=== PATIENT | male | born 1960 | race Caucasian/White ===

== ENCOUNTER → 2017-10-19 13:54 | Outpatient (CLI) | payer OTHER, SELFPAY ==
--- NOTE | 2017-10-19 14:13 | RAD_ITS ---
STUDY: X-RAY - LUMBAR SPINE REASON FOR EXAM: Male, 57 years old. PATIENT STATES THURSDAY HIS BROTHER BEAR HUGGED HIM AND LIFTED HIM OFF THE GROUND. PAIN IN LOWER BACK RADIATING TO THE LEFT TECHNIQUE: 5 view(s) of the lumbar spine were obtained. COMPARISON: None FINDINGS: Normal lumbar lordosis. There is no substantial scoliosis. There is a normal alignment of the vertebrae. There is multilevel endplate spondylosis of the lumbar vertebrae. There is multi-level degenerative disc disease with multi-level disc space narrowing. There are atherosclerotic vascular calcifications. The soft tissue structures are unremarkable. RAD/L/S Spine Min 4 Views IMPRESSION: Degenerative changes of the spine, as detailed above. Electronically Signed: Mayank Silver MD at 21:15 EDT , Service support ,
== END ==
PROVIDERS: Family Provider Family Medicine; PCP Family Medicine; Visit Provider Nurse Practitioner Family
DX: S39.92XA Unspecified injury of lower back, initial encounter (principal)
CPT/HCPCS: 72110

== ENCOUNTER → 2017-11-14 09:22 | Outpatient (CLI) | payer OTHER, SELFPAY ==
--- NOTE | 2017-11-14 09:45 | US_ITS ---
STUDY: RENAL ULTRASOUND - COMPLETE REASON FOR EXAM: Male, 57 years old. Follow-up left renal cyst. TECHNIQUE: Ultrasound evaluation of the kidneys was performed with real-time and static obando-scale imaging. COMPARISON: 07/20/2015. FINDINGS: RIGHT KIDNEY: Normal location of the right kidney, which is normal in size. The right kidney measures 11.0 x 5.3 x 4.7 cm. There is a normal cortex of the right kidney. The renal cortex measures 1.5 cm. There is no right renal mass or cyst. There are no right renal calculi. There is no right hydronephrosis. DISTAL RIGHT URETER: There is non-visualization of the distal right ureter. There is no demonstrated right ureterovesical junction calculus. There is a visualized right ureteral jet. LEFT KIDNEY: Normal location of the left kidney, which is normal in size. The left kidney measures 11.2 x 4.7 x 5.3 cm. There is a normal cortex of the left kidney. The renal cortex measures 1.6 cm. Stable 1.5 cm mid renal cyst. There are no left renal calculi. There is no left hydronephrosis. DISTAL LEFT URETER: There is non-visualization of the distal left ureter. There is no demonstrated left ureterovesical junction calculus. There is a visualized left ureteral jet. BLADDER: The distended urinary bladder has a volume of 390 ml. The empty urinary bladder has a volume of 66 ml. There is a normal wall thickness of the distended urinary bladder. There is no demonstrated mass within the urinary bladder. There are no demonstrated bladder calculi. Moderate prostate enlargement measuring 3.6 x 5.9 x 3.6 cm. US/Kidney and Bladder IMPRESSION: No acute abnormalities. Stable simple cyst of the mid left kidney. Enlarged prostate gland and small post void residual of the bladder. Electronically Signed: Stewart Ross MD at 23:30 EDT , Service support ,
== END ==
PROVIDERS: Family Provider Family Medicine; PCP Family Medicine; Referring Provider Family Medicine; Visit Provider Family Medicine
DX: N28.1 Cyst of kidney, acquired (principal)
CPT/HCPCS: 76770

== ENCOUNTER → 2018-03-26 07:14 | Outpatient (CLI) | payer OTHER, SELFPAY ==
[2018-03-26 10:10] LABS: Absolute Lymphocyte Count 1.97 X10^3/ul (0.83-4.51); Absolute Neutrophil Count 3.1 X10^3/uL (2.0-7.7); Basophil# 0.06 X10^3/uL; Basophil% 0.9 % (0-1); Eosinophil# 0.44 X10^3/uL; Eosinophils% 6.7 % (0-5); Hematocrit 41.3 % (40-54); Hemoglobin 13.6 g/dl (13.0-16.5); Lymphocyte # 1.97 X10^3/ul (4.0); Mean Corp Hgb Conc 32.9 g/gl (32-36); Mean Corpuscular Hgb 32.1 pg (27.0-32.0); Mean Corpuscular Volume 97.4 fL (80-94); Mean Platelet Vol. 9.5 fl (6.2-12.0); Monocyte# 0.94 X10^3/uL; Monocyte% 14.3 % (0-10); Neutrophil # 3.14 X10^3/uL (2.7-7.7); Neutrophil % 47.8 % (47-70); Platelet Count 342 K/mm3 (150-450); RBC Distribution Width SD 48.7 fl (35.1-43.9); Red Blood Count 4.24 M/mm3 (4.6-6.2); White Blood Count 6.6 K/mm3 (4.4-11.0)
[2018-03-26 10:11] LABS: POSITIVE COUNT NO; POSITIVE DIFFERENTIAL NO; POSITIVE MORPHOLOGY NO
[2018-03-26 10:35] LABS: Microalbumin,Random Urine 13.8 mg/L (NO RANGE EST.); Microalbumin:Creatinine Ratio 23.8 mg/g CRE (<30 mg/g CRE)
[2018-03-26 11:05] LABS: Anion Gap 8 (5-15); BUN 12 mg/dL (7-18); BUN/Creat Ratio 15.6 RATIO (10-20); Calcium,Total 9.4 mg/dL (8.5-10.1); Chloride 104 mmol/L (98-107); Cholesterol 194 mg/dL (200); Creatinine, Serum 0.77 mg/dL (0.70-1.30); EST Glomerular Filtration Rate 110 mL/min (>60); Est Glom Filt Rate - Afr Amer 133 mL/min (>60); Glucose 79 mg/dL (74-106); High Density Lipoprotein 85 mg/dL; Potassium 4.3 mmol/L (3.5-5.1); Sodium Level 138 mmol/L (136-145); Thyroid Stim Hormone (TSH) 2.07 uIU/mL (0.358-3.74); Triglycerides 56 mg/dL; Very Low Density Lipoprotein 11 mg/dL (5-40)
== END ==
PROVIDERS: Family Provider Family Medicine; PCP Family Medicine; Referring Provider Family Medicine; Visit Provider Family Medicine
DX: I10 Essential (primary) hypertension (principal); D51.9 Vitamin B12 deficiency anemia, unspecified
CPT/HCPCS: 36415; 80048; 80061; 82043; 82570; 84443; 85025

== ENCOUNTER → 2019-03-29 | Outpatient (CLI) | payer OTHER, SELFPAY ==
[2019-03-29 10:04] LABS: Absolute Lymphocyte Count 1.02 X10^3/uL (0.83-4.51); Absolute Neutrophil Count 7.8 X10^3/uL (2.0-7.7); Basophil# 0.05 X10^3/uL; Basophil% 0.5 % (0-1); Eosinophil# 0.25 X10^3/uL; Eosinophils% 2.5 % (0-5); Hematocrit 40.1 % (40-54); Hemoglobin 13.2 g/dL (13.0-16.5); Lymphocyte # 1.02 X10^3/ul (4.0); Mean Corp Hgb Conc 32.9 g/dL (32-36); Mean Corpuscular Hgb 32.6 pg (27.0-32.0); Monocyte# 1.01 X10^3/uL; Monocyte% 9.9 % (0-10); NRBC Flagged by Analyzer 0 % (0-5); Neutrophil # 7.82 X10^3/uL (2.7-7.7); Neutrophil % 76.8 % (47-70); Platelet Count 315 K/mm3 (150-450); RBC Distribution Width SD 51.3 fl (35.1-43.9); Red Blood Count 4.05 M/mm3 (4.6-6.2); White Blood Count 10.2 K/mm3 (4.4-11.0)
[2019-03-29 10:39] LABS: Vitamin B12 857 pg/mL (211-911)
[2019-03-29 10:44] LABS: ALB/GLOB Ratio 1.1 RATIO (0.9-2.4); AST(SGOT) 21 U/L (15-37); Alanine Aminotransfer ALT/SGPT 28 U/L (16-61); Albumin, Serum 4.1 g/dL (3.2-5.0); Alkaline Phosphatase 86 U/L (45-117); Anion Gap 5 (5-15); BUN 5 mg/dL (7-18); BUN/Creat Ratio 6.5 RATIO (10-20); Calcium,Total 9.8 mg/dL (8.5-10.1); Chloride 106 mmol/L (98-107); Creatinine, Serum 0.77 mg/dL (0.70-1.30); EST Glomerular Filtration Rate 110 mL/min (>60); Est Glom Filt Rate - Afr Amer 133 mL/min (>60); Ferritin 213 ng/mL (26-388); Globulin 3.7 g/dL (2.2-4.2); Glucose 88 mg/dL (74-106); Potassium 4.1 mmol/L (3.5-5.1); Protein, Total 7.8 g/dL (6.4-8.2); Sodium Level 140 mmol/L (136-145); Thyroid Stim Hormone (TSH) 2.22 uIU/mL (0.358-3.74)
== END | disposition home or self-care (01) ==
LOC: MFPLAB 09:17
PROVIDERS: PCP Family Medicine; Visit Provider Family Medicine
DX: J39.9 Disease of upper respiratory tract, unspecified (principal); D51.8 Other vitamin B12 deficiency anemias; R19.5 Other fecal abnormalities
CPT/HCPCS: 36415; 80053; 82607; 82728; 82746; 84443; 85025

== ENCOUNTER → 2019-05-31 | Outpatient (CLI) | payer OTHER, SELFPAY ==
--- NOTE | 2019-05-31 09:41 | RAD_ITS ---
STUDY: X-RAY - LEFT SHOULDER REASON FOR EXAM: Left shoulder pain for 10 years. TECHNIQUE: 4 view(s) of the shoulder. COMPARISON: Radiographs 11/08/2012. FINDINGS: Normal glenohumeral articulation. Normal acromioclavicular joint. Normal acromion. There are postoperative changes of the greater tuberosity and biceps tendinosis. The soft tissue structures are unremarkable. Normal visualized pulmonary apex. RAD/Shoulder min 2 Views IMPRESSION: Postoperative changes. Otherwise, unremarkable x-ray examination of the left shoulder. Electronically Signed: Greg Hankins MD at 11:23 EDT Tel , Service support ,
== END | disposition home or self-care (01) ==
LOC: MTRAD 09:41
PROVIDERS: PCP Family Medicine; Referring Provider Orthopaedic Surgery; Visit Provider Orthopaedic Surgery
DX: S49.92XA Unspecified injury of left shoulder and upper arm, initial encounter (principal)
CPT/HCPCS: 73030

== ENCOUNTER → 2019-06-07 10:39 | Outpatient (CLI) | payer OTHER, SELFPAY ==
[2019-05-31 10:40] VITALS: BMI 22.7
--- NOTE | 2019-06-07 10:40 | MRI_ITS ---
STUDY: MRI LEFT SHOULDER REASON FOR EXAM: Left shoulder pain for 6 months, rotator cuff repair in 2011. TECHNIQUE: Standardized fat and water weighted pulse sequences were obtained in all 3 orthogonal planes. COMPARISON: Radiographs 05/31/2019 and MRI images 01/11/2013. FINDINGS: There are postoperative changes from rotator cuff repair with a full-thickness tear of the posterior supraspinatus/anterior infraspinatus tendons with a fluid-filled gap (T2 coronal images 12-15) measuring 2.4 x 1.6 cm (length x width). There is mild subscapularis tendinosis (proton density axial image 12) without discrete tendon tear. Normal teres minor tendon. There is atrophy with partial fat replacement of the supraspinatus muscle (T2 axial image 8). Normal infraspinatus muscle. Normal subscapularis muscle. Normal teres minor muscle. There is a very small glenohumeral joint effusion. There are anchors in the proximal humerus. The biceps tenodesis appears intact (T2 sagittal image 13). There is attrition of the superior labrum as on the prior study. Normal capsulo- ligamentous complex. There is mild acromioclavicular arthrosis with mild capsular thickening (T2 sagittal image 10). There is a Type II morphology (curved), with a neutral orientation. There is a small volume of subacromial-subdeltoid bursal fluid. Normal deltoid muscle. Normal trapezius muscle. MRI/Upper Ext Joint Only(Routine) IMPRESSION: Full-thickness tear of the posterior supraspinatus/anterior infraspinatus tendons. Subscapularis tendinosis. Atrophy of the supraspinatus muscle. Mild acromioclavicular arthrosis. Glenohumeral joint fluid communicating with the subacromial-subdeltoid bursa. Electronically Signed: Greg Hankins MD at 12:28 EDT Tel , Service support ,
--- NOTE | 2019-06-07 10:45 | RAD_ITS ---
STUDY: X-RAY - ORBITS REASON FOR EXAM: Male, 58 years old. PRE MRI. METALLIC STRIP IS ON PATIENT''S FACE MASK TECHNIQUE: 2 view(s) of the orbits were obtained. COMPARISON: None. FINDINGS: Normal bilateral orbits without a metallic orbital foreign body. A linear metallic density is seen. This is due to the patient''s protective mask. Normal visualized facial bones. Normal paranasal sinuses. The soft tissue structures are unremarkable. RAD/Orbits for Foreign Body IMPRESSION: No demonstrated metallic orbital foreign body. The patient is cleared for an MRI examination. Electronically Signed: Johnathan Cortez, at 11:10 EDT , Service support ,
== END ==
PROVIDERS: PCP Family Medicine; Referring Provider Orthopaedic Surgery; Visit Provider Orthopaedic Surgery
DX: S46.012S Strain of muscle(s) and tendon(s) of the rotator cuff of left shoulder, sequela (principal)
CPT/HCPCS: 70030; 73221

== ENCOUNTER → 2019-12-19 07:31 | Outpatient (CLI) | payer OTHER, SELFPAY ==
[2019-06-23 09:57] VITALS: BMI 22.5
[2019-12-19 10:21] LABS: Hematocrit 40.4 % (40-54); Hemoglobin 13.6 g/dL (13.0-16.5); Mean Corp Hgb Conc 33.7 g/dL (32-36); Mean Corpuscular Hgb 32.9 pg (27.0-32.0); Mean Corpuscular Volume 97.6 fL (80-94); Mean Platelet Vol. 9.1 fl (6.2-12.0); Platelet Count 382 K/mm3 (150-450); RBC Distribution Width CV 13.9 % (11.6-14.6); RBC Distribution Width SD 50.3 fl (35.1-43.9); Red Blood Count 4.14 M/mm3 (4.6-6.2); White Blood Count 6.4 K/mm3 (4.4-11.0)
[2019-12-19 10:46] LABS: AST(SGOT) 17 U/L (15-37); Alanine Aminotransfer ALT/SGPT 23 U/L (16-61); Alkaline Phosphatase 78 U/L (45-117); Anion Gap 6 (5-15); BUN 5 mg/dL (7-18); BUN/Creat Ratio 6.1 RATIO (10-20); Calcium,Total 9.8 mg/dL (8.5-10.1); Chloride 107 mmol/L (98-107); Cholesterol 199 mg/dL (200); Creatinine, Serum 0.81 mg/dL (0.70-1.30); EST Glomerular Filtration Rate 103 mL/min (>60); Est Glom Filt Rate - Afr Amer 124 mL/min (>60); Globulin 3.9 g/dL (2.2-4.2); Glucose 86 mg/dL (74-106); High Density Lipoprotein 86 mg/dL; Potassium 4.3 mmol/L (3.5-5.1); Protein, Total 7.9 g/dL (6.4-8.2); Sodium Level 140 mmol/L (136-145); Triglycerides 127 mg/dL; Very Low Density Lipoprotein 25 mg/dL (5-40)
== END ==
PROVIDERS: PCP Family Medicine; Referring Provider Family Medicine; Visit Provider Family Medicine
DX: D51.8 Other vitamin B12 deficiency anemias (principal); F17.200 Nicotine dependence, unspecified, uncomplicated; Z13.220 Encounter for screening for lipoid disorders
CPT/HCPCS: 36415; 80053; 80061; 82746; 85027

== ENCOUNTER → 2020-01-12 14:43 | Outpatient (CLI) | payer OTHER, SELFPAY ==
[2019-06-23 09:57] VITALS: BMI 22.5
== END ==
PROVIDERS: PCP Family Medicine; Visit Provider Family Medicine
DX: Z20.828 Contact with and (suspected) exposure to other viral communicable diseases (principal)
CPT/HCPCS: 87635; U0003

== ENCOUNTER → 2020-10-19 | Outpatient (CLI) | payer OTHER, SELFPAY | END | disposition home or self-care (01) | LOC: LABSPEC 15:01 | PROVIDERS: PCP Family Medicine; Referring Provider Family Medicine; Visit Provider Family Medicine | DX: Z20.822 Contact with and (suspected) exposure to COVID-19 (principal) | CPT/HCPCS: 87635; U0005; U0003 ==

== ENCOUNTER → 2021-02-04 | Outpatient (CLI) | payer OTHER, SELFPAY | END | disposition home or self-care (01) | PROVIDERS: PCP Family Medicine; Visit Provider Nurse Practitioner Family | DX: Z20.822 Contact with and (suspected) exposure to COVID-19 (principal) | CPT/HCPCS: 87635; U0005; U0003 ==

== ENCOUNTER 2021-04-13 11:20 | Outpatient (CLI) | payer OTHER, SELFPAY ==
--- NOTE | 2021-04-13 11:43 | US_ITS ---
STUDY: RENAL ULTRASOUND - COMPLETE REASON FOR EXAM: Male, 60 years old. History of renal cyst. TECHNIQUE: Ultrasound evaluation of the kidneys was performed with real-time and static obando-scale imaging. COMPARISON: 11/14/2017. FINDINGS: RIGHT KIDNEY: Normal location of the right kidney, which is normal in size. The right kidney measures 10.4 x 5.5 x 4.8 cm. There is a normal cortex of the right kidney. The renal cortex measures 1.5 cm. There is no right renal mass or cyst. There are no right renal calculi. There is no right hydronephrosis. DISTAL RIGHT URETER: There is non-visualization of the distal right ureter. There is no demonstrated right ureterovesical junction calculus. There is a visualized right ureteral jet. LEFT KIDNEY: Normal location of the left kidney, which is normal in size. The left kidney measures 11.2 x 5.7 x 5.1 cm. There is a normal cortex of the left kidney. The renal cortex measures 1.8 cm. There again is a 1.4 cm cyst in the left kidney unchanged. There are no left renal calculi. There is no left hydronephrosis. DISTAL LEFT URETER: There is non-visualization of the distal left ureter. There is no demonstrated left ureterovesical junction calculus. There is a visualized left ureteral jet. BLADDER: The distended urinary bladder has a volume of 261 ml. Mild thickening of the bladder wall could be due to underdistention. US/Kidney and Bladder IMPRESSION: 1. Stable small left renal cyst. 2. No evidence of hydronephrosis. Electronically Signed: Haider Barriga, at 13:00 EST ,
== END 2021-04-13 23:59 | disposition home or self-care (01) ==
LOC: US 11:21
PROVIDERS: PCP Family Medicine; Visit Provider Family Medicine
DX: N28.1 Cyst of kidney, acquired (principal)
CPT/HCPCS: 76770

== ENCOUNTER 2021-05-01 07:30 | Emergency (ER) | payer OTHER, SELFPAY ==
[2021-05-01 07:31] VITALS: BP 127/84; PULSE 96; RESP 14; TEMP 37.5; O2SAT 96; BMI 22.9
--- NOTE | 2021-05-01 07:46 | RAD_ITS ---
EXAM: XR LUMBOSACRAL SPINE, 2 OR 3 VIEWS CLINICAL INDICATION: Back pain. TECHNIQUE: Frontal and lateral views of the lumbar spine and sacrum. This report was created using [employer] report [employer] technology. COMPARISON: None. FINDINGS: VERTEBRAE: Anterior and lateral spurs of the lumbar spine. Minimal anterior wedging of the superior endplate of L1 vertebral body is presumably from remote injury. No spondylolisthesis. Preservation of the normal lumbar lordosis. No significant facet arthropathy. DISC SPACES: Mild L2-L3 disc space height narrowing with endplate sclerosis. Normal remaining lumbar disc space heights. GASTROINTESTINAL TRACT: Unremarkable as visualized. Included bowel gas pattern is non-obstructive. RAD/Lumbar Spine 2 or 3 Views IMPRESSION: No acute findings in the lumbar spine. Electronically Signed: Jj Rose MD at 8:38 EDT ,
--- NOTE | 2021-05-01 07:46 | RAD_ITS ---
EXAM: XR LEFT ANKLE COMPLETE, 3 OR MORE VIEWS CLINICAL INDICATION: Left ankle pain. TECHNIQUE: Frontal, lateral and oblique views of the left ankle. This report was created using [employer] report generation technology. COMPARISON: None. FINDINGS: BONES/JOINTS: Minimal spurs in the distal end of the tibia. No acute fracture. No subluxation. Normal alignment. Preservation of the joint space. No sclerotic or destructive changes observed. SOFT TISSUES: Unremarkable. No soft tissue swelling or gas. No radiopaque foreign body. RAD/Ankle min 3 Views IMPRESSION: No acute findings in the left ankle. Electronically Signed: Jj Rose MD at 8:36 EDT ,
--- NOTE | 2021-05-01 07:46 | RAD_ITS ---
EXAM: XR LEFT KNEE COMPLETE, 4 OR MORE VIEWS CLINICAL INDICATION: Left knee pain. TECHNIQUE: Four or more views of the left knee. This report was created using [email or web address] report generation technology. COMPARISON: None. FINDINGS: BONES/JOINTS: Chondrocalcinosis in the medial and lateral femorotibial compartments. No acute fracture. No subluxation. Normal alignment. Preservation of the joint space. No sclerotic or destructive changes observed. SOFT TISSUES: Unremarkable. No soft tissue swelling or gas. No radiopaque foreign body. RAD/Knee 4 or More Views IMPRESSION: 1. Chondrocalcinosis in the medial and lateral femorotibial compartments of the left knee due to CPPD arthropathy. 2. No acute osseous abnormality of the left knee. Electronically Signed: Jj Rose MD at 8:37 EDT ,
--- NOTE | 2021-05-01 07:48 | EDS_ITS ---
HPI History of Present Illness Chief Complaint: Fall Informant: patient and spouse/S.O. Onset/Context/Timing Onset: Days Current Severity: Moderate Maximum Severity: Moderate Narrative Narrative: Patient presents secondary to left knee and ankle pain as well as back pain. On Thursday the patient developed back pain while at work. He was standing in a hole cutting a pipe. Patient states when he stood up he had sudden pain across his kidney area. On Thursday the he fell while walking his dog. He states he was squatted low and the dog pulled him over onto his left side. He did not believe he was injured at the time. He was seen by his PCP on Thursday the and given Flexeril, indomethacin, oxycodone. Patient states he woke yesterday morning with left knee pain and swelling. This morning he also has pain in his left ankle. He does not feel like the back pain is radiating down his legs. No fever or chills. PFSH PFSH Medical History Anemia Arthritis DDD (degenerative disc disease), lumbar Hemorrhoids Left groin pain Osteoarthritis of left hip Home Medications cyclobenzaprine 5 mg PO TID PRN 05/01/21 [History Last Taken Unknown] hydroxocobalamin 1,000 mcg IM QMONTH 05/01/21 [History Last Taken Unknown] indomethacin 25 mg PO Q8H PRN 05/01/21 [History Last Taken Unknown] oxycodone 5 mg PO Q6H PRN 05/01/21 [History Last Taken Unknown] prednisone 40 mg PO DAILY #10 tab 05/01/21 [Rx Last Taken Unknown] Allergy/AdvReac Type Severity Reaction Status Date / Time No Known Allergies Allergy Verified 05/01/21 07:33 Family History Mother Hypertension Father Hypertension Sister Hypertension Brother Hypertension Surgical History History of repair of left rotator cuff History of repair of right rotator cuff Hx of inguinal hernia repair Social History Smoking Status: Current every day smoker tobacco type: cigarettes alcohol intake: current alcohol intake frequency: 3 or more drinks per day Alcohol type: beer substance use type: does not use caffeine: Yes what type of physical activity do you participate in: none frequency: does not exercise ROS ROS ED Constitutional Constitutional ED: Denies chills or fever(s) Eyes Eyes: Denies change in vision ENT ENT ED: Denies sore throat Cardiovascular Cardiovascular: Denies chest pain Respiratory/Chest Respiratory/Chest: Denies cough or dyspnea Gastrointestinal Gastrointestinal: Denies abdominal pain, nausea or vomiting Genitourinary Genitourinary ED: Denies dysuria Musculoskeletal Musculoskeletal: Reports arthralgias and back pain Integumentary Denies rash Neurologic Neurologic: Denies headache(s) or paresthesias Allergic/Immunologic Allergic/Immunologic ED: Denies urticaria EXAM Physical Exam Const Vital Signs: 05/01/21 07:31 Temperature 99.5 F H Temperature Source Oral Pulse Rate 96 Respiratory Rate 14 Blood Pressure 127/84 H Blood Pressure Mean 98 Pulse Ox 96 Oxygen Delivery Method Room Air Positive well nourished and well developed General Appearance ED: well developed HEENT atraumatic Eyes PERRL and EOMs intact bilaterally Neck full ROM Chest Wall inspection of chest normal and palpation of chest normal Resp normal respiratory effort and clear to auscultation bilaterally Cardio regular rhythm Rate: regular rate GI normal to inspection, nondistended, normoactive bowel sounds and non-tender Palpation: soft Back/Spine Back/Spine Narrative: Mild tenderness of the left lower lumbar paraspinal muscles. No midline tenderness. Extremity Extremity Narrative: Diffuse tenderness to palpation left knee with edema noted. No erythema or excessive warmth. Mild tenderness around the left ankle with minimal edema. Strong distal pulses. Neuro oriented x3 Sensorium / Orientation: alert Psych mental status grossly normal Skin no rashes or lesions noted MDM MDM MDM Narrative Medical decision making narrative: Patient given dose of oxycodone. Patient sent for x-rays of his L-spine, pelvis and left hip, left knee, left ankle. Radiography Diagnostic Testing: Clinical Impression(s) from Imaging Studies Ankle X-Ray 05/01/21 07:46 IMPRESSION: No acute findings in the left ankle. Electronically Signed: Jj Rose MD at 8:36 EDT Reading Location ID and State: [facility] / [place] , Service support , Knee X-Ray 05/01/21 07:46 IMPRESSION: 1. Chondrocalcinosis in the medial and lateral femorotibial compartments of the left knee due to CPPD arthropathy. 2. No acute osseous abnormality of the left knee. Electronically Signed: Jj Rose MD at 8:37 EDT , Lumbar Spine X-Ray 05/01/21 07:46 IMPRESSION: No acute findings in the lumbar spine. 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 Electronically Signed: Shoaib Brock MD at 9:19 EDT , Treatment and Re-Evaluation Narrative: X-rays per my interpretation reveal no acute fractures. Mild effusion noted on the left knee. Radiology interpretation reviewed on all images. Patient does have evidence of acetabular impingement which may explain his longstanding left hip pain. He does have chondrocalcinosis of the left knee. Test results discussed with patient and at bedside. Brennan wrap will be applied to the left knee. He will be treated with steroids in addition to the medication already prescribed by his primary care physician. Return instructions provided. At the end of the visit did mention that patient had a fever this morning. On arrival to the emergency room temperature was 99.5 and repeated this time is 99.0. Knee does not appear red or excessively warm I do not believe he has evidence of a joint infection. Discharge Plan Triage Chief Complaint: Fall ED Provider: Jessie Issa Dx/Rx/DC Orders Clinical Impression: Left knee sprain Instructions: ED Knee Sprain Prescriptions: New prednisone 20 mg tablet 40 mg PO DAILY Qty: 10 RF: 0 No Action hydroxocobalamin 1,000 mcg/mL Solution 1,000 mcg IM QMONTH RF: 0 indomethacin 25 mg capsule 25 mg PO Q8H PRN (Reason: Pain) RF: 0 cyclobenzaprine 5 mg tablet 5 mg PO TID PRN (Reason: Pain) RF: 0 oxycodone 10 mg tablet 5 mg PO Q6H PRN (Reason: Pain) RF: 0 Primary Care Provider: Yoan Sheffield Referrals: Yoan Sheffield MD [Primary Care Provider] - 5-7 Days Disposition Disposition: Home, Self Care
[2021-05-01] MEDS: oxyCODONE 5 MG Tablet PO (08:13)
--- NOTE | 2021-05-01 09:05 | RAD_ITS ---
STUDY: X-RAY - PELVIS AND LEFT HIP REASON FOR EXAM: Male, 60 years old. pain TECHNIQUE: 3 views of the pelvis and hip. COMPARISON: 06/21/2020 FINDINGS: There is a non-specific bowel gas pattern. Normal visualized soft tissue structures. Normal bilateral iliac wings, sacroiliac joints and visualized sacrum. Normal bilateral superior and inferior pubic rami. Normal pubic symphysis. Normal bilateral ischial tuberosities. Decreased from a neck are submitted from a dysplastic bump predisposing and type femoral acetabular impingement. There is osteoarthritic spur formation of the acetabular rim. There is mild articular joint space narrowing of the hip. 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 Electronically Signed: Shoaib Brock MD at 9:19 EDT ,
== END 2021-05-01 09:53 | disposition home or self-care (01) ==
PROVIDERS: Emergency Provider Emergency Medicine; PCP Family Medicine; Visit Provider Emergency Medicine
DX: S83.92XA Sprain of unspecified site of left knee, initial encounter (principal); M25.572 Pain in left ankle and joints of left foot; W01.0XXA Fall on same level from slipping, tripping and stumbling without subsequent striking against object, initial encounter; Y93.K1 Activity, walking an animal; M54.9 Dorsalgia, unspecified; M25.852 Other specified joint disorders, left hip; M11.262 Other chondrocalcinosis, left knee; F17.210 Nicotine dependence, cigarettes, uncomplicated; Z79.899 Other long term (current) drug therapy
CPT/HCPCS: 72100; 73502; 73564; 73610; 99284

== ENCOUNTER 2022-09-09 13:55 | Emergency (ER) | payer OTHER, SELFPAY ==
[2022-09-09 13:56] VITALS: BP 156/104; PULSE 79; RESP 18; TEMP 36.1; O2SAT 100; BMI 23.3
--- NOTE | 2022-09-09 14:05 | RAD_ITS ---
STUDY: X-RAY - RIGHT SHOULDER REASON FOR EXAM: Male, 62 years old. Right shoulder pain following injury. TECHNIQUE: 4 view(s) of the shoulder. COMPARISON: None. FINDINGS: There is mild degenerative arthrosis of the glenohumeral articulation. There is degenerative arthrosis of the acromioclavicular joint without inferior osseous spur formation. Normal acromion. Normal humeral head and visualized proximal humerus. A surgical metallic densities seen overlying the proximal shaft of the right humerus suggests a prior tendon repair. The soft tissue structures are unremarkable. Normal visualized pulmonary apex. RAD/Shoulder min 2 Views IMPRESSION: Mild degree of joint space narrowing of the right shoulder joint. No acute fracture or dislocation is seen. Findings suggestive of prior tendon repair in the proximal right humerus. Electronically Signed: Johnathan Cortez MD at 14:25 EDT ,
--- NOTE | 2022-09-09 14:38 | EX.ED.UPPERE ---
HPI History of Present Illness Chief Complaint: Upper Extremity Injury Detail of Chief Complaint: Right shoulder injury Informant: patient Onset/Context/Timing Onset: Yesterday Narrative Narrative: Patient presents secondary to right shoulder injury. He has had prior rotator cuff repair and bicep tendon repair on the right. He states yesterday he was lifting a propane tank when he felt a sudden pain across his shoulder. He now has decreased range of motion at the shoulder. No paresthesias. He is right-hand dominant. PFSH PFSH Medical History Anemia Arthritis DDD (degenerative disc disease), lumbar Hemorrhoids Left groin pain Osteoarthritis of left hip Home Medications hydroxocobalamin 1,000 mcg/mL intramuscular solution 1,000 mcg IM QMONTH 05/01/21 [History Last Taken Unknown] indomethacin 25 mg capsule 25 mg PO Q8H PRN Pain 05/01/21 [History Last Taken Unknown] oxycodone 10 mg tablet 5 mg PO Q6H PRN Pain 05/01/21 [History Last Taken Unknown] prednisone 20 mg tablet 40 mg (2 x 20 mg) PO DAILY #10 tabs 05/01/21 [Rx Last Taken Unknown] hydrocodone-acetaminophen 5-325mg 5mg-325mg 1 tab PO Q6H PRN PRN Pain 3 days #12 TABLETS 09/09/22 [Rx Last Taken Unknown] Allergy/AdvReac Type Severity Reaction Status Date / Time No Known Allergies Allergy Verified 09/09/22 13:57 Family History Mother Hypertension Father Hypertension Sister Hypertension Brother Hypertension Surgical History History of repair of left rotator cuff History of repair of right rotator cuff Hx of inguinal hernia repair Social History Smoking Status: Current every day smoker tobacco type: cigarettes alcohol intake: current alcohol intake frequency: 3 or more drinks per day Alcohol type: beer substance use type: does not use caffeine: Yes what type of physical activity do you participate in: none frequency: does not exercise ROS ROS ED Constitutional Constitutional ED: Denies chills or fever(s) Eyes Eyes: Denies change in vision ENT ENT ED: Denies rhinorrhea or sore throat Cardiovascular Cardiovascular: Denies chest pain or palpitations Respiratory/Chest Respiratory/Chest: Denies cough or dyspnea Gastrointestinal Gastrointestinal: Denies abdominal pain, nausea or vomiting Musculoskeletal Musculoskeletal: Reports extremity pain; Denies back pain Integumentary Denies Abrasions or rash Neurologic Neurologic: Reports weakness; Denies headache(s) or paresthesias Psychiatric Psychiatric: Denies anxiety or depression Allergic/Immunologic Allergic/Immunologic ED: Denies lip swelling or urticaria EXAM Physical Exam Const Vital Signs: 09/09/22 13:56 Temperature 97 F L Temperature Source Temporal Pulse Rate 79 Respiratory Rate 18 Blood Pressure 156/104 H Blood Pressure Mean 121 Pulse Ox 100 Oxygen Delivery Method Room Air Positive well nourished and well developed General Appearance ED: well developed HEENT Reports normocephalic and head/scalp atraumatic Eyes PERRL and EOMs intact bilaterally Neck supple Chest Wall inspection of chest normal and palpation of chest normal Resp normal respiratory effort and clear to auscultation bilaterally Cardio regular rate and regular rhythm GI Palpation: soft Extremity Extremity Narrative: Mild tenderness outpatient over the anterior right shoulder. No obvious dislocation. Decreased range of motion of the shoulder secondary to pain. No tenderness at the elbow or wrist. Strong hand grasp and strong distal pulses. No skin changes. Neuro oriented x3 and no sensory deficits noted Sensorium / Orientation: alert Psych mental status grossly normal Skin no rashes or lesions noted MDM MDM MDM Narrative Medical decision making narrative: Right shoulder x-rays were obtained per nursing protocol. Per my interpretation no evidence of acute fracture or dislocation. Postsurgical changes noted. Radiology interpretation is reviewed and agrees. Test results discussed with patient and at bedside. He will be given a sling. I will write her prescription for [place]. He will follow-up with Dr. Jimenez who he has seen in the past. Radiography Diagnostic Testing: Clinical Impression(s) from Imaging Studies Shoulder X-Ray 09/09/22 14:05 IMPRESSION: Mild degree of joint space narrowing of the right shoulder joint. No acute fracture or dislocation is seen. Findings suggestive of prior tendon repair in the proximal right humerus. Electronically Signed: Johnathan Cortez MD at 14:25 EDT , Discharge Plan Triage Chief Complaint: Upper Extremity Injury ED Provider: Jessie Issa Dx/Rx/DC Orders Clinical Impression: Sprain of right shoulder Instructions: ED Shoulder Sprain Prescriptions: New hydrocodone-acetaminophen 5-325 mg tablet 1 tab PO Q6H PRN PRN (Reason: Pain) 3 Days Qty: 12 0RF No Action hydroxocobalamin 1,000 mcg/mL Solution 1,000 mcg IM QMONTH indomethacin 25 mg capsule 25 mg PO Q8H PRN (Reason: Pain) oxycodone 10 mg tablet 5 mg PO Q6H PRN (Reason: Pain) prednisone 20 mg tablet 40 mg PO DAILY Qty: 10 0RF Stand Alone Forms: Work / School Excuse Primary Care Provider: Yoan Sheffield Referrals: Yoan Sheffield MD [Primary Care Provider] - Bienvenido Jimenez DO [Med Staff - Active Staff] - As soon as possible Disposition Disposition: Home, Self Care
== END 2022-09-09 15:02 | disposition home or self-care (01) ==
PROVIDERS: Emergency Provider Emergency Medicine; PCP Family Medicine; Visit Provider Emergency Medicine
DX: S43.401A Unspecified sprain of right shoulder joint, initial encounter (principal); X50.0XXA Overexertion from strenuous movement or load, initial encounter; F17.210 Nicotine dependence, cigarettes, uncomplicated
CPT/HCPCS: 73030; 90471; 99284

== ENCOUNTER → 2022-09-20 | Outpatient (CLI) | payer OTHER, SELFPAY ==
--- NOTE | 2022-09-20 07:19 | MRI_ITS ---
EXAM: MR RIGHT UPPER EXTREMITY WITHOUT INTRAVENOUS CONTRAST, SHOULDER CLINICAL INDICATION: pain, LIFTING injury 2 WEEKS AGO, DECREASED ROM TECHNIQUE: Multiplanar and multisequence MR images of the right shoulder without intravenous contrast. COMPARISON: No relevant prior studies available. FINDINGS: TENDONS: SUPRASPINATUS: Full-thickness fullwidth tear of the supraspinatus tendon and infraspinatus tendon with failure at the footprint retraction of the torn tendon fibers to the joint line. INFRASPINATUS: See above. SUBSCAPULARIS: Partial-thickness tearing involving the superior fibers of the subscapularis tendon, at least moderate grade. TERES MINOR: Unremarkable. Intact. BICEPS BRACHII, LONG HEAD: Long head of the biceps tendon is likely torn and retracted, not well seen within the bicipital groove. LIGAMENTS: GLENOHUMERAL: Unremarkable. Intact. MUSCLES: Moderate atrophy involving supraspinatus and infraspinatus muscles as well as the superior portion of the subscapularis muscle. FLUID: Large glenohumeral joint effusion clearly communicates with the subacromial/subdeltoid bursa through the full thickness rotator cuff defects. There is prominent synovitis in the axillary pouch, probably posttraumatic. CARTILAGE: Unremarkable. Articular cartilage intact. GLENOID LABRUM: Unremarkable. No gross evidence for any labral tearing. BONES/JOINTS: Moderate to severe hypertrophic degenerative discovertebral joint with moderate mass effect on the underlying soft tissues. There is superior subluxation humeral head relative to glenoid formation a pseudoarticulation with the undersurface of the acromion. Small subacromial enthesophyte identified. No os acromiale. Small cystsat the anterolateral humeral head. OTHER SOFT TISSUES: Unremarkable. No rotator interval edema. MRI/Upper Ext Joint Only(Routine) IMPRESSION: 1. Full-thickness fullwidth tear of the supraspinatus tendon and infraspinatus tendon with failure at the footprint retraction of the torn tendon fibers to the joint line. 2. Partial-thickness tear suspected to involve the superior fibers of the subscapularis tendon, at least moderate grade. 3. 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 4. [id number] hypertrophic degenerative changes of the acromioclavicular joint. 5. Small subacromial enthesophyte anteriorly. Electronically Signed: Dre Giles MD at 4:55 EDT ,
== END | disposition home or self-care (01) ==
PROVIDERS: PCP Family Medicine; Referring Provider Orthopaedic Surgery; Visit Provider Orthopaedic Surgery
DX: S43.401A Unspecified sprain of right shoulder joint, initial encounter (principal); M75.100 Unspecified rotator cuff tear or rupture of unspecified shoulder, not specified as traumatic; X58.XXXA Exposure to other specified factors, initial encounter
CPT/HCPCS: 73221

== ENCOUNTER 2022-10-24 09:00 | Outpatient (RCR) | payer OTHER, SELFPAY ==
--- NOTE | 2022-09-29 10:17 | HP.PTEVAL_ITS ---
Patient's Visit Information Visit Information Visit Information: JANET JEFFERSON is a 62 year old M referred to Physical Therapy by Dr. Bienvenido Jimenez DO with a diagnosis of Right RTC Tear. Date of Evaluation: 09/29/22 Physical Therapist: Elsi Butt DPT Visit Plan Frequency: 2x /Week Duration: 4 Weeks Plan: Focus on gentle scap s/s HEP Given IE: 6 way isometrics starting at 10% force working towards max with pain as guide Subjective Subjective: Patient reports that he was exchanging a propane tank and he tore his rotator cuff on the right side about a month ago. He has had 2 surgeries on that shoulder already- the last one was [address] Badillo. He went to see Dr. Geller and he told him its an extensive tear- and told him not to do anything crazy- he is currently redoing his porch. He told him to try therapy prior to try to not have to have surgery. He is not having a ton of pain unless he moves wrong or pulls it wrong. Worst: 07/19 Agg: movement. Eases: fades away. Best: 03/21. He has had an MRI. Describes the pain as achy- until he catches it then its debilitating. The pain is located in the biceps and in the tricep-no pain past the elbow- the pain does radiate into the suboccipals. 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 Right hand dominate. Sleep: disturbed him a few times early on- not at this point. X-rays and MRI both in chart. Normally very active. Work: retired. PMHx/Meds: no change since saw Dr. Geller in chart Objective Objective: Posture: FH, RS- can correct with verbal cues Gait: guarding of the right UE- decreased arm swing Palpation: tender along bicipital groove ROM: WFL in all a planes but does report painful arc with flexion and abduction Strength: [employer]: 80 lbs of force bilateral, Elbow: 4/5 with pain, Shoulder Isometric at neutral: 4/5 abd/flexion/extn- IR: 3+/5 ER: 2+/5 with severe pain. Special Tests R Shoulder Lift Off Test - Subscapular Tear: Positive R Shoulder Empty Can - SS: Positive R Shoulder Belly Press - SupScap: Positive R Shoulder Neer - Impingement: Positive R Shoulder Lazaro Feng - Impingement: Positive Balance/Special Test Scores Quick DASH Score: 34.0900 Goals Goal 1:: Patient will be I with HEP and progression Goal Time Frame: 4-6 Weeks Goal 2:: Patient will demo full ROM in the right shoulder Goal Time Frame: 4-6 Weeks Goal 3:: Patient will maintain proper posture t/o tx session to demo increased core s/s Goal Time Frame: 4-6 Weeks Goal 4:: Patient will report 80% improvement Goal Time Frame: 4-6 Weeks Rehabilitation Potential Physical Therapy Diagnosis: Patient presents with hypomobility- he has decreased pain free UE ROM, UE and scapular strength/stabilization and muscular endurance leading to poor posture and increased pain with ADL's. Rehabilitation Potential: Good Anticipated Interventions Patient/Client Instruction: Educate patient on: Benefits of Fitness Program Therapeutic Exercise to Include: Strength training, Endurance training, Balance training, Coordination, Agility training, Body mechanics, Postural training, Flexibilty training, Gait and locomotor training, Neuromotor development, Passive ROM, Active ROM, Dynamic Lumbar Stabilization and Scapular Strength/Stabilization For the Purpose of:: To improve muscle performance and motor function Manual Therapy Techniques to Include: Soft tissue mobilization TENS: Yes Text: Thank you for the opportunity to evaluate your patient. For Medicare and Medicare HMO plans, please review the plan of care and approve it. It will need to be FAXED BACK to us at [phone] for Medicare purposes. For Medicare only, by signing this I certify the plan of care. Please let me know if there are questions or concerns regarding this plan of care. Physician Signature: Date:
--- NOTE | 2023-02-05 08:35 | HP.PT.NRP ---
Patient Information Patient Information: JANET JEFFERSON was seen in my office for initial evaluation on 09/29/22. The following Plan of Care was established for this patient: POC Established Initial Frequency: 2x /Week Initial Duration: 4 Weeks Anticipated Interventions Patient/Client Instruction: Educate patient on: Benefits of Fitness Program Therapeutic Exercise to Include: Strength training, Endurance training, Balance training, Coordination, Agility training, Body mechanics, Postural training, Flexibilty training, Gait and locomotor training, Neuromotor development, Passive ROM, Active ROM, Dynamic Lumbar Stabilization and Scapular Strength/Stabilization For the Purpose of:: To improve muscle performance and motor function Manual Therapy Techniques to Include: Soft tissue mobilization TENS: Yes Last Seen Last Seen: This patient was last seen in our office . Pertinent comments regarding their Physical therapy will appear below: Patient has not attended PT in over 8 weeks and is appropriate to be d/c at this time. At this point I will be discontinuing this patient from physical therapy. I would be happy to see this patient again in the future if found appropriate by the physician. Thank you! Elsi Butt, DARAT Balance/Gait/Functional tests Balance/Special Test Scores Quick DASH Score: 34.0900
== END 2022-10-24 19:00 | disposition home or self-care (01) ==
LOC: PT 09:00
PROVIDERS: PCP Family Medicine; Referring Provider Orthopaedic Surgery; Visit Provider Orthopaedic Surgery
DX: M75.100 Unspecified rotator cuff tear or rupture of unspecified shoulder, not specified as traumatic (principal)
CPT/HCPCS: 97110; 97162

== ENCOUNTER 2022-10-27 12:07 | Emergency (ER) | payer OTHER, SELFPAY ==
[2022-10-27 12:07] VITALS: BP 177/97; PULSE 66; RESP 18; TEMP 35.8; O2SAT 99; BMI 24.4
--- NOTE | 2022-10-27 12:23 | RAD_ITS ---
STUDY: X-RAY - LUMBAR SPINE REASON FOR EXAM: Male, 62 years old. Low back pain following a fall. TECHNIQUE: 2 view(s) of the lumbar spine were obtained. COMPARISON: Comparison is made with prior study the 2021. FINDINGS: Normal lumbar lordosis. There is no substantial scoliosis. There is a normal alignment of the vertebrae. There is multilevel endplate spondylosis of the lumbar vertebrae. There is multi-level degenerative disc disease with multi-level disc space narrowing. Stable minimal anterior wedging of the superior endplate of the L1 vertebrae. The soft tissue structures are unremarkable. RAD/Lumbar Spine 2 or 3 Views IMPRESSION: Degenerative changes of the spine, as detailed above. Stable minimal anterior wedging of the superior endplate of the L1 vertebrae. Electronically Signed: Johnathan Cortez MD at 13:17 EDT ,
--- NOTE | 2022-10-27 12:23 | CT_ITS ---
STUDY: CT BRAIN WITHOUT CONTRAST REASON FOR EXAM: Male, 62 years old. Head injury RADIATION DOSAGE (If Supplied By Facility): CTDIvol = ( 44.99 ) mGy, DLP = ( 796.11 ) mGycm TECHNIQUE: Transaxial CT imaging of the brain was performed without administration of intravenous contrast material. Individualized dose optimization techniques were used for this CT. COMPARISON: No relevant priors. FINDINGS: Normal soft tissue structures. Normal calvarium. Normal size ventricles and extra-axial spaces for the patient''s age. Normal white matter tracts of the cerebral hemispheres. Normal basal ganglia and thalami. Normal brainstem. Normal cerebellum. There is no intracranial hemorrhage. There are no findings of an acute ischemic infarction. Normal visualized paranasal sinuses. CT/Brain/Head without Contrast IMPRESSION: Normal unenhanced CT scan of the brain. Electronically Signed: Johnathan Cortez MD at 13:16 EDT ,
--- NOTE | 2022-10-27 12:23 | EKG12_ITS ---
Test Reason : FALL Blood Pressure : / mmHG Vent. Rate : 072 BPM Atrial Rate : 072 BPM P-R Int : 138 ms QRS Dur : 094 ms QT Int : 390 ms P-R-T Axes : 046 046 062 degrees QTc Int : 427 ms Normal sinus rhythm Normal ECG When compared with ECG of 08-NOV-2012 12:25, No significant change was found Confirmed by NGUYEN MCMULLEN, KOKI ([id number]), index editor ELGIN DUEÑAS ([id number]) on 10/29/2022 9:52:34 AM Referred By: ASHLEY Confirmed By:CAMERON CEDILLO MD
--- NOTE | 2022-10-27 12:27 | EDS_ITS ---
HPI History of Present Illness Chief Complaint: Syncope Informant: patient and spouse/S.O. Narrative Narrative: COVID-positive symptoms started yesterday. Patient reported feels like I got beat up. Fever started yesterday status post Tylenol at 9 AM this morning. Loose stools today. No headaches. No cough. States was standing doing crossword's he felt off He was on the ground. He had the back of his head. Does not recall this. He does not take anticoagulants. COVID infection 3 years ago he is vaccinated with 1 dose. Sick contact with sick mother who had this a week ago. Denies chest pains. Denies vomiting. Denies urinary symptoms. Reports slight headache and lower back pain that worsens. Back pain started 2 days ago after pulling shrubs. Worsen with the fall. No radicular symptoms. Previous back issues in the past treated with muscle relaxers of Flexeril by his PCP. [facility] Medical History Anemia Arthritis DDD (degenerative disc disease), lumbar Hemorrhoids Left groin pain Osteoarthritis of left hip Home Medications hydroxocobalamin 1,000 mcg/mL intramuscular solution 1,000 mcg IM QMONTH 05/01/21 [History Last Taken Unknown] hydrocodone-acetaminophen 5-325mg 5mg-325mg 1 tab PO Q6H PRN PRN Pain 3 days #12 TABLETS 09/09/22 [Rx Last Taken Unknown] fexofenadine 60 mg-pseudoephedrine ER 120 mg tablet,ext.release,12 hr (Cady-D 12 Hour) 1 tab PO Q12H PRN 09/10/22 [History Last Taken Unknown] etodolac 500 mg tablet 500 mg PO BID #30 tabs 09/22/22 [Rx Last Taken Unknown] cyclobenzaprine 10 mg tablet 10 mg PO TID PRN Muscle Spasm #20 TABLETS 10/27/22 [Rx Last Taken Unknown] nirmatrelvir 300 mg (150 mg x2)-ritonavir 100 mg tablet,dose pack (Paxlovid) See Rx Instructions PO .COMPLEX #30 tabs 10/27/22 [Rx Last Taken Unknown] Allergy/AdvReac Type Severity Reaction Status Date / Time pollen extracts AdvReac Runny Verified 09/10/22 15:50 nose, itchy eyes Family History Mother Hypertension Father Hypertension Sister Hypertension Brother Hypertension Surgical History History of repair of left rotator cuff History of repair of right rotator cuff Hx of inguinal hernia repair Social History Smoking Status: Current every day smoker tobacco type: cigarettes alcohol intake: current alcohol intake frequency: 3 or more drinks per day Alcohol type: beer substance use type: does not use caffeine: Yes what type of physical activity do you participate in: none frequency: does not exercise ROS ROS ED Constitutional Constitutional ED: Denies chills, fever(s) or sweats Eyes Eyes: Denies change in vision ENT ENT ED: Denies dysphagia or sore throat Cardiovascular Cardiovascular: Reports other Details: Syncope ; Denies chest pain, leg edema, palpitations or racing heartbeat Respiratory/Chest Respiratory/Chest: Denies cough, dyspnea or dyspnea on exertion Gastrointestinal Gastrointestinal: Denies abdominal pain, diarrhea, nausea or vomiting Genitourinary Genitourinary ED: Denies dysuria, hematuria or urinary frequency Musculoskeletal Musculoskeletal: Reports back pain and myalgias; Denies extremity pain or neck pain Integumentary Denies rash or wounds Neurologic Neurologic: Reports headache(s); Denies paresthesias or weakness EXAM Physical Exam Const Vital Signs: 10/27/22 12:07 10/27/22 12:41 10/27/22 12:41 Temperature 96.5 F L Temperature Source Temporal Pulse Rate 66 76 Respiratory Rate 18 12 Respiratory Effort Normal Respiratory Pattern Normal Blood Pressure 177/97 H 185/107 H Blood Pressure Mean 123 133 Pulse Ox 99 100 Oxygen Delivery Method Room Air Room Air 10/27/22 13:51 Temperature Temperature Source Pulse Rate 89 Respiratory Rate 16 Respiratory Effort Respiratory Pattern Blood Pressure 168/79 H Blood Pressure Mean Pulse Ox 97 Oxygen Delivery Method Positive well nourished and well developed Constitutional Narrative: GCS 15 General Appearance ED: well developed and NAD HEENT Reports dry mucous membranes normocephalic and atraumatic Mouth ED: Yes dry mucous membranes Mouth: dry mucous membranes Eyes PERRL, EOMs intact bilaterally and conjunctivae normal General Eye ED: Yes normal appearance of both eyes Neck no lymphadenopathy and supple Neck Narrative: No midline tenderness no paracervical tenderness. General: Negative for tenderness Chest Wall inspection of chest normal and palpation of chest normal Chest: Negative for tenderness Resp normal respiratory effort and normal air movement Effort and Inspection: symmetric chest movement; Negative for respiratory distress Cardio regular rate, regular rhythm and no murmurs Peripheral Pulses: pulses 2+ throughout GI normal to inspection, nondistended, normoactive bowel sounds and non-tender Palpation: Negative for guarding or rebound tenderness present Back/Spine no CVA tenderness Back/Spine Narrative: Tender palpation lower lumbar midline no step-offs. Extremity normal to inspection General Extremety ED: Negative for edema or tenderness General Extremity: Negative for edema Neuro oriented x3, CN's II-XII intact bilaterally and no sensory deficits noted Sensorium / Orientation: awake and alert Skin no rashes or lesions noted and no wounds MDM MDM MDM Narrative Medical decision making narrative: Interventions / MDM: Differential diagnosis: COVID infection, syncope, dehydration, electrolyte abnormalities Diagnosis considered but do not suspect: No clinical dyspnea for concerns for PE. My EKG interpretation: Rate of 72, no ST or T wave changes. QTc 427. Imaging independently reviewed and interpreted by myself: CT brain: No acute process. Two-view chest x-ray: No acute process. 2 view lumbar spine: Stable L1 endplate Wedge fracture from previous. No new findings. Also read by radiology. External documents reviewed: N/A Test considered but not ordered:N/A ED course: Patient syncopal episode COVID diagnosed yesterday. Dry mucosal membranes. EKG obtain labs. Head injury. CT brain chest x-ray normal lumbar spine x-rays ordered. EKG with no acute findings. Laboratory studies returned stable sodium 133. Chest x-ray negative. Lumbar spine x-rays stable previous changes. CT brain negative for acute process. Patient clinically improving on exam he is ambulate with no return of symptoms. Day 2 of symptoms discussed treatment options, agrees with Paxlovid. No contraindications. This was sent to his pharmacy. Prescription for Flexeril for his lumbar strain. He will continue Tylenol or Motrin as needed. Outpatient follow-up. Re-evaluation: stable Disposition discussed with patient/family/significant other: Patient and significant other Case discussed with consulting clinician: N/A This note was generated with Ontodiaation software. It may contain incorrect words, spelling, and punctuation that were not noted in checking the note before signing. Lab Data Attestation: I reviewed the patient's lab results. Labs: Laboratory Results - last 24 hr 10/27/22 12:30 WBC 5.2 RBC 3.99 L Hgb 13.0 Hct 39.0 L MCV 97.7 H MCH 32.6 H MCHC 33.3 RDW Std Deviation 50.9 H RDW Coeff of Adryan 14.0 Plt Count 287 MPV 8.5 Immature Gran % (Auto) 0.400 Neut % (Auto) 55.3 Lymph % (Auto) 21.0 [place] % (Auto) 22.1 H Eos % (Auto) 0.6 Baso % (Auto) 0.6 Absolute Neuts (auto) 2.9 Absolute Lymphs (auto) 1.08 Nucleated RBC % 0 Sodium 133 L Potassium 3.5 Chloride 100 Carbon Dioxide 28.0 Anion Gap 5 BUN 10 Creatinine 0.88 Estim Creat Clear Calc 80.33 Est GFR (MDRD) Af Amer 112 Est GFR (MDRD) Non-Af 93 BUN/Creatinine Ratio 11.3 Glucose 114 H Calcium 9.3 Radiography Diagnostic Testing: Clinical Impression(s) from Imaging Studies Brain CT 10/27/22 12:23 IMPRESSION: Normal unenhanced CT scan of the brain. Electronically Signed: Johnathan Cortez MD at 13:16 EDT , Lumbar Spine X-Ray 10/27/22 12:23 IMPRESSION: Degenerative changes of the spine, as detailed above. Stable minimal anterior wedging of the superior endplate of the L1 vertebrae. Electronically Signed: Johnathan Cortez MD at 13:17 EDT , Chest X-Ray 10/27/22 12:55 IMPRESSION: Hyperinflation. No acute abnormality is seen. Stable examination. Electronically Signed: Johnathan Cortez MD at 13:19 EDT , Discharge Plan Triage Chief Complaint: Syncope ED Provider: Jose Austin Dx/Rx/DC Orders Clinical Impression: COVID-19 virus infection, Lumbar strain, CHI (closed head injury), Syncope, Dehydration Instructions: Coronavirus Disease 2019 (COVID-19): Caring for Yourself or Others, ED Back Sprain/Strain, ED Dehydration (Adult), ED Head Injury (Adult) Prescriptions: New cyclobenzaprine [cyclobenzaprine] 10 mg tablet 10 mg PO TID PRN (Reason: Muscle Spasm) Qty: 20 0RF Paxlovid 300 mg (150 mg x 2)-100 mg tablets,dose pack See Rx Instructions .ROUTE .COMPLEX Qty: 30 0RF Rx Instructions: take TWO 150 mg tablets of nirmatrelvir with ONE 100 mg tablet of ritonavir twice daily for 5 days No Action fexofenadine-pseudoephedrine [Cady-D 12 Hour] 60-120 mg tablet extended release 12 hr 1 tab PO Q12H PRN etodolac 500 mg tablet 500 mg PO BID Qty: 30 0RF Rx Instructions: Do not take in conjunction with other NSAID. Tylenol is okay. hydroxocobalamin 1,000 mcg/mL Solution 1,000 mcg IM QMONTH hydrocodone-acetaminophen 5-325 mg tablet 1 tab PO Q6H PRN PRN (Reason: Pain) 3 Days Qty: 12 0RF Primary Care Provider: Yoan Sheffield Referrals: Yoan Sheffield MD [Primary Care Provider] - 1 Week Activity Restrictions/Additional Instructions: CT brain negative chest x-ray negative EKG normal vital labs slight hyponatremia sodium 133. Creatinine normal. Lumbar x-ray old stable compression fracture L1 that is minor. Continue oral fluids for hydration Tylenol or Motrin as needed. Follow-up with your doctor. Disposition Disposition: Home, Self Care Discharge Date/Time: 10/27/22 13:53
[2022-10-27] MEDS: 0.9% Normal Saline (1000mL) 1,000 ML 1000 ML IV (12:39)
[2022-10-27 12:41] VITALS: BP 185/107; PULSE 76; RESP 12; O2SAT 100
[2022-10-27 12:42] LABS: Absolute Lymphocyte Count 1.08 X10^3/uL (0.83-4.51); Absolute Neutrophil Count 2.9 X10^3/uL (2.0-7.7); Basophil# 0.03 X10^3/uL; Basophil% 0.6 % (0-1); Eosinophil# 0.03 X10^3/uL; Eosinophils% 0.6 % (0-5); Lymphocyte # 1.08 X10^3/ul (0.83-4.51); Mean Corp Hgb Conc 33.3 g/dL (32-36); Mean Corpuscular Hgb 32.6 pg (27.0-32.0); Mean Corpuscular Volume 97.7 fL (80-94); Mean Platelet Vol. 8.5 fl (6.2-12.0); Monocyte# 1.14 X10^3/uL; Monocyte% 22.1 % (0-10); NRBC Flagged by Analyzer 0 % (0-5); Neutrophil # 2.85 X10^3/uL (2.7-7.7); Neutrophil % 55.3 % (47-70); Platelet Count 287 K/mm3 (150-450); RBC Distribution Width SD 50.9 fl (35.1-43.9); Red Blood Count 3.99 M/mm3 (4.6-6.2); White Blood Count 5.2 K/mm3 (4.4-11.0)
--- NOTE | 2022-10-27 12:55 | RAD_ITS ---
STUDY: X-RAY CHEST REASON FOR EXAM: Male, 62 years old. Syncope TECHNIQUE: PA and lateral views of the chest. COMPARISON: Comparison is made with prior study dated November 08, 2022. FINDINGS: EKG electrodes are seen. Scattered calcified granulomas. Hyperinflation. There is no demonstrated pleural abnormality. Normal size heart. Normal mediastinum and annalee. Normal visualized pulmonary arteries. Normal visualized aortic arch and descending thoracic aorta. There are degenerative changes of the visualized thoracic spine. Normal visualized ribs, clavicles, and shoulders. There is no demonstrated abnormality of the visualized soft tissue structures of the upper abdomen. RAD/Chest PA and Lateral IMPRESSION: Hyperinflation. No acute abnormality is seen. Stable examination. Electronically Signed: Johnathan Cortez MD at 13:19 EDT ,
[2022-10-27 12:57] LABS: Anion Gap 5 (5-15); BUN 10 mg/dL (7-18); BUN/Creat Ratio 11.3 RATIO (10-20); Calcium,Total 9.3 mg/dL (8.5-10.1); Chloride 100 mmol/L (98-107); Creatinine, Serum 0.88 mg/dL (0.70-1.30); EST Glomerular Filtration Rate 93 mL/min (>60); Est Glom Filt Rate - Afr Amer 112 mL/min (>60); Estimated Creatinine Clearance 80.33 ml/min; Glucose 114 mg/dL (74-106); Potassium 3.5 mmol/L (3.5-5.1); Sodium Level 133 mmol/L (136-145)
[2022-10-27 13:51] VITALS: BP 168/79; PULSE 89; RESP 16; O2SAT 97
== END 2022-10-27 13:53 | disposition home or self-care (01) ==
PROVIDERS: Emergency Provider Emergency Medicine; PCP Family Medicine; Visit Provider Emergency Medicine
DX: S09.90XA Unspecified injury of head, initial encounter (principal); U07.1 COVID-19; E86.0 Dehydration; R55 Syncope and collapse; S39.012A Strain of muscle, fascia and tendon of lower back, initial encounter; F17.210 Nicotine dependence, cigarettes, uncomplicated; X58.XXXA Exposure to other specified factors, initial encounter
CPT/HCPCS: 70450; 71046; 72100; 80048; 85025; 93005; 96360; 99285; A4216

== ENCOUNTER 2024-11-14 06:00 | Day surgery (SDC) | payer OTHER, SELFPAY ==
--- NOTE | 2024-11-08 12:56 | EKG12_ITS ---
Test Reason : PRE OP Blood Pressure : */* mmHG Vent. Rate : 91 BPM Atrial Rate : 91 BPM P-R Int : 124 ms QRS Dur : 94 ms QT Int : 390 ms P-R-T Axes : 74 75 73 degrees QTcB Int : 479 ms Normal sinus rhythm Possible Left atrial enlargement Borderline ECG Confirmed by DENICE MCMULLEN, SALUD ([id number]), metropolitan editor JOHN CAMPOS ([id number]) on 11/09/2024 8:58:47 AM Referred By: Minesh Baker Confirmed By: SALUD GALDAMEZ MD
[2024-11-08 13:32] LABS: Hematocrit 40.6 % (40-54); Hemoglobin 14.0 g/dL (13.0-16.5); Mean Corp Hgb Conc 34.5 g/dL (32-36); Mean Corpuscular Volume 96.4 fL (80-94); Mean Platelet Vol. 8.4 fl (6.2-12.0); Platelet Count 350 K/mm3 (150-450); RBC Distribution Width CV 13.4 % (11.6-14.6); RBC Distribution Width SD 47.8 fl (35.1-43.9); Red Blood Count 4.21 M/mm3 (4.6-6.2); White Blood Count 6.6 K/mm3 (4.4-11.0)
[2024-11-08 14:05] LABS: Anion Gap 13 (5-15); BUN 7 mg/dL (4-19); BUN/Creat Ratio 9.9 RATIO (10-20); Calcium,Total 9.8 mg/dL (7.6-11.0); Carbon Dioxide 22.9 mmol/L (21.0-32.0); Chloride 102 mmol/L (98-108); Glucose 114 mg/dL (70-99); Potassium 4.2 mmol/L (3.3-5.1)
--- NOTE | 2024-11-08 16:43 | PAT.ANESEVAL ---
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 When Was Last Pacemaker Check QUESTION #4 FULL TEXT: You/Your Family Experience fever (hyperthermia) with Anesthesia Last Oral Intake Last Oral intake: Last Oral Intake NPO since Meds taken in AM with sips of water? Meds patient instructed to take am of surgery PONV PONV - security officers and guards: PONV - security officers and guards Female No 11/03/24 10:19 HX of Motion Sickness No 11/03/24 10:19 HX of N/V After Surgery No 11/03/24 10:19 Non-Smoker No 11/03/24 10:19 Duration of Surgery greater No 11/03/24 10:19 than 60 minutes Number of Risk Factors PONV Score Height & Weight Height & Weight: Anesthesia: Height & Weight Height 5 ft 7 in 10/27/22 12:07 Respiratory Assessment Respiratory Assessment - security officers and guards: Respiratory Tract Infection Hx - security officers and guards Hx Respiratory Tract Infection No 11/03/24 10:19 STOP Sleep Apnea STOP Sleep Apnea - security officers and guards: STOP Sleep Apnea - security officers and guards Hx Hypertension No 11/03/24 10:19 Hx Sleep Apnea No 11/03/24 10:19 CPAP No 05/03/21 14:48 BIPAP No 05/03/21 14:48 Do you snore loudly (louder Yes 11/03/24 10:19 than talking or can be heard Do you often feel tired/ No 11/03/24 10:19 fatigued/ sleepy during daytime? Has anyone observed you stop Yes 11/03/24 10:19 breathing during sleep? STOP Results Positive 11/03/24 10:19 QUESTION #5 FULL TEXT : Do you snore loudly (louder than talking or can be heard through closed doors)? 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 Specify any problems Hx of Preganancy in last 3 N/A 11/03/24 10:19 Months Nurse Filling Out Transfusion DSCHRIBER 11/03/24 10:19 & Questions: Date: 11/03/24 11/03/24 10:19 Time: 10:21 11/03/24 10:19 Patient unable to answer at this time (ie. confused, unrespo /Reproduction History /Reproductive History - security officers and guards: /Reproductive Hx- security officers and guards Hx Now No 11/03/24 10:19 Gestational Age (in weeks): EDC: Hx Hx Para Hx Section SAB No 11/03/24 10:19 [facility] Medical History (Updated 11/03/24 @ 10:28 by Silvina Casillas) Wears glasses Alcohol use History of steroid therapy Anemia Back pain Blackout Gastric reflux Smoker Arthritis Osteoarthritis of left hip DDD (degenerative disc disease), lumbar Home Medications ?Medication ?Instructions ?Recorded ?Last Taken ?Type fexofenadine 60 mg-pseudoephedrine 1 tab PO DAILY 09/10/22 Unknown History ER 120 mg tablet,ext.release,12 hr (Cady-D 12 Hour) cyclobenzaprine 10 mg tablet 10 mg PO TID PRN Muscle Spasm #20 10/27/22 Unknown Rx TABLETS cyanocobalamin (vitamin B-12) 100 mcg IM QWEEK 11/03/24 Unknown History 1,000 mcg/mL injection solution pantoprazole 40 mg tablet,delayed 40 mg PO DAILY 11/03/24 Unknown History release Allergy/AdvReac Type Severity Reaction Status Date / Time pollen extracts AdvReac Runny Verified 11/03/24 10:15 nose, itchy eyes Family History Mother Hypertension Father Hypertension Sister Hypertension Brother Hypertension Surgical History (Updated 11/03/24 @ 10:25 by Silvina Casillas) Hx of colonoscopy Hx of tonsillectomy History of repair of right rotator cuff History of repair of left rotator cuff Hx of inguinal hernia repair Social History Smoking Status: Current every day smoker tobacco type: cigarettes alcohol intake: current alcohol intake frequency: 3 or more drinks per day Alcohol type: beer substance use type: does not use caffeine: Yes what type of physical activity do you participate in: none frequency: does not exercise Audit: Pertinent Findings Pertinent Findings EKG Perinent findings: 10/27/2022. Normal sinus rhythm. Recommendation Anesthesia Recommendation Anesthesia recommendation: OPTIMIZED for anesthesia
[2024-11-14] VITALS (8 sets, daily range): BP systolic 149–156; BP diastolic 88–100; PULSE 69–80; RESP 16; TEMP 36.4–37.1; O2SAT 98–100; BMI 21.0
--- OUTSIDE RECORDS SUMMARY | 2024-11-14 06:02 | XMS RPT_ITS | CCD ---
Author Organization [facility] Care Team Providers Care Collet Maker Name Role Phone Yohannes MCMULLEN, Yoan Mittal Primary Care Provider Dr. Yoan Sheffield Primary Care Provider Dr. Yoan Sheffield Referring Provider Dr. Bienvenido Jimenez Attending Provider [phone] Minesh Baker Referring Unavailable Minesh Baker Attending Unavailable Yoan Sheffield Primary Care Unavailable Allergies Allergy Classification Reported Allergen(s) Allergy Type Date of Onset Reaction(s) Facility (2 sources) Pollen Propensity to adverse reactions 3 Runny nose, itchy eyes [facility] (1 source) Pollen Drug allergy (disorder) 5 [facility] Repository Medications Current Medications Medication Drug Class(es) Dates Sig (Normalized) Sig (Original) cyclobenzaprine hydrochloride 10 mg oral tablet (5 sources) Muscle Relaxant Start: 10-27-2022 take 10 mg by mouth three times daily Cyclobenzaprine Active 10 MG PO THREE TIMES A DAY October 26, 2022 11:00pm Start: 05-01-2021 End: 05-08-2021 take 5 mg by mouth three times daily Cyclobenzaprine Discontinued 5 MG PO THREE TIMES A DAY April 30, 2021 11:00pm May 08, 2021 7:46am doxycycline monohydrate 100 mg oral tablet (1 source) Tetracycline-class Drug Start: 11-18-2021 End: 11-23-2021 take 1 tablet by mouth twice daily doxycycline monohydrate 100 mg tablet Take 1 tablet by mouth twice daily for 5 days. 10 tablet 0 11/18/2021 11/23/2021 Active Comment on above: Take 1 tablet by bettie twice daily for 5 days. etodolac 500 mg oral tablet (2 sources) Nonsteroidal Anti-inflammatory Drug Start: 09-22-2022 take 500 mg by mouth twice daily Etodolac Active 500 MG PO TWICE A DAY September 21, 2022 11:00pm Do not take in conjunction with other NSAID. Tylenol is okay. 12 hr fexofenadine hydrochloride 60 mg / pseudoephedrine hydrochloride 120 mg extended release oral tablet (2 sources) alpha-Adrenergic Agonist, Histamine-1 Receptor Antagonist Start: 09-10-2022 take 1 tablet by mouth every twelve hours, then take 1 tablet by mouth every twelve hours Fexofenadine-Pseud oephedrine (Cady-D 12 Hour) 60-120 mg tablet extended release 12 hr Active 1 TABLET PO Q12H September 09, 2022 11:00pm hydroxocobalamin 1 mg/ml injectable solution (3 sources) Antidote Start: 05-01-2021 inject 1000 ug by intramuscular injection every month Hydroxocobalamin Active 1000 MCG IM EVERY MONTH April 30, 2021 11:00pm Nirmatrelvir-Ritona vir (2 sources) Start: 10-27-2022 Nirmatrelvir-Riton avir (Paxlovid) 300 mg (150 mg x 2)-100 mg tablets,dose pack Active 0 PO .COMPLEX October 26, 2022 11:00pm take TWO 150 mg tablets of nirmatrelvir with ONE 100 mg tablet of ritonavir twice daily for 5 days Start: 10-27-2022 Nirmatrelvir-R itonavir (Paxlovid) 300 mg (150 mg x 2)-100 mg tablets,dose pack Active 0 PO .COMPLEX October 27, 2022 12:00am take TWO 150 mg tablets of nirmatrelvir with ONE 100 mg tablet of ritonavir twice daily for 5 days Completed/Discontinued Medications Medication Drug Class(es) Dates Sig (Normalized) Sig (Original) acetaminophen 325 mg / HYDROcodone bitartrate 5 mg oral tablet (4 sources) Opioid Agonist Start: 09-10-2022 End: 09-17-2022 take 1 tablet by mouth every eight hours Hydrocodone-Acetami nophen Discontinued 1 TABLET PO Q8H 29 08September 10, 2022 September 16, 2022 11:03pm Narcotic can be addictive. minimize use and supplement with OTC NSAID Start: 09-09-2022 take 1 tablet by bettie th every six hours as needed Hydrocodone-Acetaminophen Active 1 TABLE T PO EVERY 6 HOURS NEEDED 12 3 September 09, 2022 indomethacin 25 mg oral capsule (3 sources) Nonsteroidal Anti-inflammatory Drug Start: 05-01-2021 End: 09-10-2022 take 25 mg by mouth every eight hours Indomethacin Discontinued 25 MG PO Q8H April 30, 2021 11:00pm September 10, 2022 2:51pm oxyCODONE hydrochloride 10 mg oral tablet (3 sources) Opioid Agonist Start: 05-01-2021 End: 09-10-2022 take 5 mg by mouth every six hours Oxycodone Discontinued 5 MG PO EVERY 6 HOURS April 30, 2021 11:00pm September 10, 2022 2:51pm phenazopyridine hydrochloride 200 mg oral tablet (1 source) Start: 11-21-2014 take 1 tablet by mouth every eight hours as needed for urinary tract infection and urinary tract infection phenazopyridine (PYRIDIUM, GERIDIUM) 200 mg tablet Indications: Urinary tract infection with hematuria, site unspecified Take 1 tablet by mouth three times daily as needed for Pain. 15 tablet 0 11/21/2014 Active Comment on above: Take 1 tablet by bettie th three times daily as needed for Pain. predniSONE 20 mg oral tablet (3 sources) Start: 05-01-2021 End: 09-10-2022 take 40 mg by mouth once daily Prednisone Discontinued 40 MG PO DAILY April 30, 2021 11:00pm September 10, 2022 2:51pm tiZANidine 4 mg oral tablet (3 sources) Central alpha-2 Adrenergic Agonist Start: 06-21-2020 End: 06-25-2020 Tizanidine Discontinued EACH PO June 20, 2020 11:00pm June 25, 2020 8:04am varenicline 1 mg oral tablet (1 source) Partial Cholinergic Nicotinic Agonist Start: 10-11-2021 take 1 tablet by mouth twice daily varenicline (CHANTIX) 1 mg tablet Take 1 mg by mouth twice daily. 0 10/11/2021 Active Comment on above: Take 1 mg by mouth t wice daily. Problems Active Problems Problem Classification Problem Date Documented Da te Episodic/Chronic Abdominal pain (3 sources) Left inguinal pain; Translations: [Left lower quadrant pain] 06-25-2020 Episodic Deficiency and other anemia (3 sources) Anemia; Translations: [Anemia, unspecified] 06-25-2020 Episodic Fluid and electrolyte disorders (2 sources) Dehydration; Translations: [Dehydration] 10-27-2022 Episodic Gout and other crystal arthropathies (2 sources) Chondrocalcinosis of knee joint; Translations: [Other chondrocalcinosis, unspecified knee] 05-08-2021 Chronic Osteoarthritis (3 sources) Osteoarthritis of left hip joint; Translations: [Unilateral primary osteoarthritis, left hip] 06-25-2020 Chronic Other connective tissue disease (4 sources) Unspecified rotator cuff tear or rupture of unspecified shoulder, not specified as traumatic; Translations: [Tear of rotator cuff] 09-22-2022 Episodic Other injuries and conditions due to external causes (2 sources) Closed injury of head; Translations: [Unspecified injury of head, initial encounter] 10-27-2022 Episodic Other non-traumatic joint disorders (2 sources) Effusion of joint of left knee; Translations: [Effusion, left knee] 05-08-2021 Episodic Skin and subcutaneous tissue infections (1 source) Infection of skin; Translations: [Local infection of the skin and subcutaneous tissue, unspecified] Episodic Spondylosis; intervertebral disc disorders; other back problems (3 sources) Degeneration of lumbar intervertebral disc; Translations: [Other intervertebral disc degeneration, lumbar region] 06-25-2020 Chronic Sprains and strains (7 sources) Sprain of knee; Translations: [Sprain of unspecified site of left knee, initial encounter] 05-09-2021 Episodic Syncope (2 sources) Syncope; Translations: [Syncope and collapse] 10-27-2022 Episodic Viral infection (2 sources) Disease caused by 2019-nCoV; Translations: [COVID-19] 10-27-2022 Episodic Past or Other Problems Problem Classification Problem Date Documented Da te Episodic/Chronic Other skin disorders (1 source) Sebaceous cyst of skin; Translations: [Sebaceous cyst] Onset: 04-16-2010 04-16-2010 Episodic Results Test Name Value Interpretation Reference Range Facility 12 Lead EKGon 11-08-2024 12 Lead EKG [facility] Cardi[facility] [address] [place] [address] 12 Lead EKG 11/08/24 1305 MR#: [id number] Acct: [id number] Name: JANET JEFFERSON Rep #: [id number] : 1960 64 From: Javier Perla MD Attending Dr: Dr. Minesh Baker MD Status: PRE [facility] [place] Ordering Dr: Minesh Baker MD Date: 11/08/24 [place] [facility] [place] Sex: M C Admitted: Test Reason : PRE OP Blood Pressure : */* mmHG Vent. Rate : 91 BPM Atrial Rate : 91 BPM P-R Int : 124 ms QRS Dur : 94 ms QT Int : 390 ms P-R-T Axes : 74 75 73 degrees QTcB Int : 479 ms Normal sinus rhythm Possible Left atrial enlargement Borderline ECG Confirmed by DENICE MCMULLEN, JAVIER ([id number]), acquisition editor JOHN CAMPOS ([id number]) on 11/09/2024 8:58:47 AM Referred By: Minesh Baker Confirmed By: JAVIER PERLA MD 11/09/24 0858 Date Javier Perla MD CC: Dr. Yoan Sheffield MD; Dr. Minesh Baker MD Signed Normal [facility] Basic Metabolic Profile (BMP )on 11-08-2024 BUN/CRE 9.9 RATIO Low 10-20 [facility] Comment on above: Performed By: #### L 500.2500, L100.0500 #### [facility] Laboratory [address] [place], [address] Calcium [Mass/Vol] 9.8 mg/dL Normal 7.6-11.0 [facility] Comment on above: Performed By: #### L 500.2500, L100.0500 #### [facility] [address] [place], [address] Chloride [Moles/Vol] 102 mmol/L Normal 98-108 [facility] Comment on above: Performed By: #### L 500.2500, L100.0500 #### [facility] [address] [place], [address] CO2 [Moles/Vol] 22.9 mmol/L Normal 21.0-32.0 [facility] Comment on above: Performed By: #### L 500.2500, L100.0500 #### [facility] [address] [place], [address] Creatinine [Mass/Vol] 0.74 mg/dL Normal 0.70-1.20 [facility] Comment on above: Performed By: #### L 500.2500, L100.0500 #### [facility] [address] [place], [address] GAP 13 Normal 5-15 [facility] Comment on above: Performed By: #### L 500.2500, L100.0500 #### [facility] [address] [place], [address] GFR/1.73 sq M.predicted among non-blacks MDRD (S/P/Bld) [Vol rate/Area] 100 mL/min/{1.73_m2} Normal >60 [facility] Comment on above: Result Comment: mL/m in/1.73m2 CKD-EPI Creatinine Equation (2020) Performed By: #### L 500.2500, L100.0500 #### [facility] [address] [place], [address] Glucose [Mass/Vol] 114 mg/dL High 70-99 [facility] Comment on above: Performed By: #### L 500.2500, L100.0500 #### [facility] [address] [place], [address] Potassium [Moles/Vol] 4.2 mmol/L Normal 3.3-5.1 [facility] Comment on above: Performed By: #### L 500.2500, L100.0500 #### [facility] [address] [place], [address] Sodium [Moles/Vol] 138 mmol/L Normal 133-145 [facility] Comment on above: Performed By: #### L 500.2500, L100.0500 #### [facility] [address], [address] Urea nitrogen [Mass/Vol] 7 mg/dL Normal 4-19 [facility] Comment on above: Performed By: #### L 500.2500, L100.0500 #### [facility] [address] [place], [address] CBC-Complete Blood Cnt No Di ffon 11-08-2024 Erythrocyte distribution width (RBC) [Ratio] 13.4 % Normal 11.6-14.6 [facility] Comment on above: Performed By: #### L 500.2500, L100.0500 #### [facility] [address] [place], [address] Hematocrit (Bld) [Volume fraction] 40.6 % Normal 40-54 [facility] Comment on above: Performed By: #### L 500.2500, L100.0500 #### [facility] [address] [place], [address] Hemoglobin (Bld) [Mass/Vol] 14.0 g/dL Normal 13.0-16.5 [facility] Comment on above: Performed By: #### L 500.2500, L100.0500 #### [facility] [address] [place], [address] MCH (RBC) [Entitic mass] 33.3 pg High 27.0-32.0 [facility] Comment on above: Performed By: #### L 500.2500, L100.0500 #### [facility] [address] [place], [address] MCHC (RBC) [Mass/Vol] 34.5 g/dL Normal 32-36 [facility] Comment on above: Performed By: #### L 500.2500, L100.0500 #### [facility] [address] [place], [address] MCV (RBC) [Entitic vol] 96.4 fL High 80-94 [facility] Comment on above: Performed By: #### L 500.2500, L100.0500 #### [facility] [address] [place], [address] Platelet mean volume (Bld) [Entitic vol] 8.4 fL Normal 6.2-12.0 [facility] Comment on above: Performed By: #### L 500.2500, L100.0500 #### [facility] [address] [place], [address] Platelets (Bld) [#/Vol] 350 10*3/uL Normal 150-450 [facility] Comment on above: Performed By: #### L 500.2500, L100.0500 #### [facility] [address] [place], [address] RBC (Bld) [#/Vol] 4.21 10*6/uL Low 4.6-6.2 [facility] Comment on above: Performed By: #### L 500.2500, L100.0500 #### [facility] [address] [place], [address] RDW SD 47.8 fl High 35.1-43.9 [facility] Comment on above: Performed By: #### L 500.2500, L100.0500 #### [facility] [address] [place], [address] WBC (Bld) [#/Vol] 6.6 10*3/uL Normal 4.4-11.0 [facility] Comment on above: Performed By: #### L 500.2500, L100.0500 #### [facility] Laboratory [address] [place], [address] MR/PATDOMINIQUEcheli 11-08-2024 MR/[facility] Medical Records Department [address] [place] [address] PAT - Anesthesia 11/08/24 1643 MR#: [id number] Acct: [id number] Name: JANET JEFFERSON Rep #: [id number] : 1960 64 From: Scooby Logan MD PCP: Dr. Yoan Sheffield MD Status:PRE SDC Y Race: C [place] [facility] [place] Pre-Assessment Diagnosis/Proposed Procedure Planned Operative Procedure(s): MICROLARYNGOSCOPY WITH VOCAL CORD STRIPPING Anesthesia History Anesthesia History - flavor extractor: Anesthesia History - flavor extractor Hx Hospitalization No 11/03/24 10:19 Any Problems With Anesthesia No 11/03/24 10:19 Cholinesterase deficiency No 11/03/24 10:19 You/Your Family Experience No 11/03/24 10:19 fever (hyperthermia) with Relationship Recent Exposure to Contagious Disease Does patient have nerve No 11/03/24 10:19 stimulator Patient instructed to have device shut off --Does patient have Pacemaker or ICD? When Was Last Pacemaker Check QUESTION #4 FULL TEXT: You/Your Family Experience fever (hyperthermia) with Anesthesia Last Oral Intake Last Oral intake: Last Oral Intake NPO since Meds taken in AM with sips of water? Meds patient instructed to take am of surgery PONV PONV - flavor extractor: PONV - flavor extractor Female No 11/03/24 10:19 HX of Motion Sickness No 11/03/24 10:19 HX of N/V After Surgery No 11/03/24 10:19 Non-Smoker No 11/03/24 10:19 Duration of Surgery greater No 11/03/24 10:19 than 60 minutes Number of Risk Factors PONV Score Height Weight Height Weight: Anesthesia: Height Weight Height 5 ft 7 in 10/27/22 12:07 Respiratory Assessment Respiratory Assessment - flavor extractor: Respiratory Tract Infection Hx - flavor extractor Hx Respiratory Tract Infection No 11/03/24 10:19 STOP Sleep Apnea STOP Sleep Apnea - flavor extractor: STOP Sleep Apnea - flavor extractor Hx Hypertension No 11/03/24 10:19 Hx Sleep Apnea No 11/03/24 10:19 CPAP No 05/03/21 14:48 BIPAP No 05/03/21 14:48 Do you snore loudly (louder Yes 11/03/24 10:19 than talking or can be heard Do you often feel tired/ No 11/03/24 10:19 fatigued/ sleepy during daytime? Has anyone observed you stop Yes 11/03/24 10:19 breathing during sleep? STOP Results Positive 11/03/24 10:19 QUESTION #5 FULL TEXT : Do you snore loudly (louder than talking or can be heard through closed doors)? Tobacco Use History Tobacco Use History - flavor extractor: Tobacco Use History - flavor extractor Tobacco Use Smoking Status Current every day smoker 11/03/24 10:19 Hx Tobacco Use Yes 11/03/24 10:19 Years Smoking Packs Smoked per Day Smoking Cessation Date was within the last 15 years Hx Smoking Cessation Date Hx Smoking Cessation Counseling Hematologic Medial History Hematologic Hx - flavor extractor: Hematologic Medical Hx - weight caller Hx of Blood Transfusion No 11/03/24 10:19 Hx of Transfusion in last 3 No 11/03/24 10:19 Months Date of Last Transfusion (if within last 3 months) Ever experience any problems No 11/03/24 10:19 with transfusion(s)? Specify any problems Hx of Preganancy in last 3 N/A 11/03/24 10:19 Months Nurse Filling Out Transfusion DSCHRIBER 11/03/24 10:19 Questions: Date: 11/03/24 11/03/24 10:19 Time: 10:21 11/03/24 10:19 Patient unable to answer at this time (ie. confused, unrespo /Reproductio n History /Reproductiv e History - flavor extractor: /Reproductiv e Hx- flavor extractor Hx Now No 11/03/24 10:19 Gestational Age (in weeks): EDC: Hx Hx Para Hx Section SAB No 11/03/24 10:19 PFSH Medical History (Updated 11/03/24 @ 10:28 by Silvina Casillas) Wears glasses Alcohol use History of steroid therapy Anemia Back pain Blackout Gastric reflux Smoker Arthritis Osteoarthritis of left hip DDD (degenerative disc disease), lumbar Home Medications ???Medication ???Instructions ???Recorded ???Last Taken ???Type fexofenadine 60 mg-pseudoephedrine 1 tab PO DAILY 09/10/22 Unknown History ER 120 mg tablet,ext.release,12 hr (Cady-D 12 Hour) cyclobenzaprine 10 mg tablet 10 mg PO TID PRN Muscle Spasm #20 10/27/22 Unknown Rx TABLETS cyanocobalamin (vitamin B-12) 100 mcg IM QWEEK 11/03/24 Unknown History 1,000 mcg/mL injection solution pantoprazole 40 mg tablet,delayed 40 mg PO DAILY 11/03/24 Unknown H istory release Allergy/AdvReac Type Severity Reaction Status Date / Time pollen extracts AdvReac Runny Verified 11/03/24 10:15 nose, itchy eyes Family History (Revie (more content not included)... Normal [facility] Absolute lymphocyte countOrd ered By: Jose Austin on 10-27-2022 Lymphocytes Auto (Unsp spec) [#/Vol] 1.08 10*3/uL 0.83-4.51 [facility] Basophil percentageOrdered B y: Jose Austin on 10-27-2022 Basophils/100 WBC (Bld) 0.6 % 0-1 [facility] Chloride [Moles/Vol] 100 mmol/L 98-107 [facility] Eosinophils/100 WBC (Bld) 0.6 % 0-5 [facility] Glucose [Mass/Vol] 114 mg/dL 74-106 [facility] Comment on above: Fasting Glucose resu lt from 100 to 125 mg/dL suggests IMPAIRED HOMEOSTASIS per A.D.A. criteria. Neutrophils (Bld) [#/Vol] 2.9 10*3/uL 2.0-7.7 [facility] Neutrophils/100 WBC (Bld) 55.3 % 47-70 [facility] Potassium [Moles/Vol] 3.5 mmol/L 3.5-5.1 [facility] Sodium [Moles/Vol] 133 mmol/L 136-145 [facility] WBC (Bld) [#/Vol] 5.2 10*3/uL 4.4-11.0 [facility] Blood erythrocytes count (nu mber/volume)Ordered By: Jose Austin on 10-27-2022 RBC (Bld) [#/Vol] 3.99 10*6/uL 4.6-6.2 [facility] Blood hemoglobin measurement (mass/volume)Ordered By: Jose Austin on 10-27-2022 Hemoglobin (Bld) [Mass/Vol] 13.0 g/dL 13.0-16.5 [facility] Blood lymphocytes/100 leukoc ytesOrdered By: Jose Austin on 10-27-2022 Lymphocytes/100 WBC (Bld) 21.0 % 19-41 [facility] Blood monocytes/100 leukocyt esOrdered By: Jose Austin on 10-27-2022 Monocytes/100 WBC (Bld) 22.1 % 0-10 [facility] Blood platelet mean volumeOr dered By: Jose Austin on 10-27-2022 Platelet mean volume (Bld) [Entitic vol] 8.5 fL 6.2-12.0 [facility] Determination of erythrocyte mean corpuscular volume (MCV)Ordered By: Jose Austin on 10-27-2022 MCV (RBC) [Entitic vol] 97.7 fL 80-94 [facility] Hematocrit Auto (Bld) [Volum e fraction]Ordered By: Jose Austin on 10-27-2022 Hematocrit (Bld) [Volume fraction] 39.0 % 40-54 [facility] Laboratory - Chemistry and C hemistry - challengeOrdered By: Jose Austin on 10-27-2022 CO2 [Moles/Vol] 28.0 mmol/L 21.0-32.0 [facility] Urea nitrogen/Creatinine [Mass ratio] 11.3 mg/mg 10-20 [facility] Laboratory - Hematology and Cell countsOrdered By: Jose Austin on 10-27-2022 Erythrocyte distribution width (RBC) [Entitic vol] 50.9 fL 35.1-43.9 [facility] Erythrocyte distribution width (RBC) [Ratio] 14.0 % 11.6-14.6 [facility] Immature granulocytes/100 WBC (Bld) 0.400 % 0.0-0.9 [facility] Comment on above: IG% - Immature Granu locytes (promyelocytes, myelocytes and metamyelocytes) > 1% indicates that a LEFT SHIFT is Present. MCH (RBC) [Entitic mass] 32.6 pg 27.0-32.0 [facility] Nucleated RBC/100 WBC (Bld) [Ratio] 0 % 0-5 [facility] ([facility]) [Mass/Vol]Or dered By: Jose Austin on 10-27-2022 MCHC (RBC) [Mass/Vol] 33.3 g/dL 32-36 [facility] No Panel InformationOrdered By: Jose Austin on 10-27-2022 Estimated Creatinine Clearance Calc 80.33 ml/min [facility] Estimated GFR (MDRD) Amer 112 mL/min >60 [facility] Comment on above: GFR Calc Estimated GFR (MDRD) Non-Af Amer 93 mL/min >60 [facility] Comment on above: Non- GFR Calc Platelets bldOrdered By: Bob Austin on 10-27-2022 Platelets (Bld) [#/Vol] 287 10*3/uL 150-450 [facility] Serum or plasma calcium alina urement (mass/volume)Ordered By: Jose Austin on 10-27-2022 Calcium [Mass/Vol] 9.3 mg/dL 8.5-10.1 [facility] Serum or plasma creatinine m easurement (mass/volume)Ordered By: Jose Austin on 10-27-2022 Creatinine [Mass/Vol] 0.88 mg/dL 0.70-1.30 [facility] Comment on above: The validity of the calculated GFR & GFRAA in patients over 70 years has not been determined. Clinical correlation is essential. Serum or plasma urea nitroge n measurement (mass/volume)Ordered By: Jose Austin on 10-27-2022 Urea nitrogen [Mass/Vol] 10 mg/dL -18 [facility] Thin prep Papanicolaou smear with manual screeningOrdered By: Jose Austin on 10-27-2022 Thin prep Papanicolaou smear with manual screening 5 5-15 [facility] Laboratory - Microbiology an d Antimicrobial susceptibilityon 02-04-2021 SARS-CoV-2 (COVID-19) RNA GRIS+probe Ql (Unsp spec) Not detected Not Detect [facility] Work Phone: Comment on above: Normal Reference Ran ge: Not DetectedMethod:(RT-PCR) real-time reverse transcriptase PCRLuCordia Instrument*The Food and Drug Administration (FDA) has issued an Emergency Use Authorization (EAU) for the FEDE SARS-CoV-2 Assay for the rapid detection of the virus that causes COVID-19. This test has been validated, but the FDAs independent review of this validation is pending.*Negative results do not preclude infection and should not be used as the sole basis for treatment or patient management. Optimum specimen types and timing for peak viral levels during infections caused by SARS-CoV-2 have not been determined. Collection of multiple specimens from the same patient may be necessary to detect the virus. The possibility of a false negative result should be considered if the patient has clinical presentation or has had recent exposure. Vital Signs Date Time Vital Sign Value Performing Clinician Faci lity 10-27-2022 13:51-0400 Diastolic blood pressure 79 mm[Hg] Dr. Yoan Sheffield Work Phone: [facility] 10-27-2022 13:51-0400 Heart rate 89 /min Dr. Yoan Sheffield Work Phone: [facility] 10-27-2022 13:51-0400 Respiratory rate 16 /min Dr. Yoan Sheffield Work Phone: [facility] 10-27-2022 13:51-0400 SaO2% (BldA) [Mass fraction] 97 % Dr. Yoan Sheffield Work Phone: [facility] 10-27-2022 13:51-0400 Systolic blood pressure 168 mm[Hg] Dr. Yoan Sheffield Work Phone: [facility] 10-27-2022 12:07-0400 Body height 170.[address] Yoan Sheffield Work Phone: [facility] 10-27-2022 12:07-0400 Body mass index (BMI) [Ratio] 24.4 kg/m2 Dr. Yoan Sheffield Work Phone: [facility] 10-27-2022 12:07-0400 Body temperature 96.5 [degF] Dr. Yoan Sheffield Work Phone: [facility] 10-27-2022 12:07-0400 Body weight 70.[address] Yoan Sheffield Work Phone: [facility] 09-09-2022 13:56-0400 Body mass index (BMI) [Ratio] 23.3 kg/m2 Dr. Yoan Sheffield Work Phone: [facility] 09-09-2022 13:56-0400 Body temperature 97 [degF] Dr. Yoan Sheffield Work Phone: [facility] 09-09-2022 13:56-0400 Body weight 67.[address] Yoan Sheffield Work Phone: [facility] 09-09-2022 13:56-0400 Diastolic blood pressure 104 mm[Hg] Dr. Yoan Sheffield Work Phone: [facility] 09-09-2022 13:56-0400 Heart rate 79 /min Dr. Yoan Sheffield Work Phone: [facility] 09-09-2022 13:56-0400 Respiratory rate 18 /min Dr. Yoan Sheffield Work Phone: [facility] 09-09-2022 13:56-0400 SaO2% (BldA) [Mass fraction] 100 % Dr. Yoan Sheffield Work Phone: [facility] 09-09-2022 13:56-0400 Systolic blood pressure 156 mm[Hg] Dr. Yoan Sheffield Work Phone: [facility] 11-18-2021 12:06-0400 Body temperature 97.2 [degF] Lisa Garza APRN.TRAINING AND DEVELOPMENT PROFESSIONAL Work Phone: [facility] 11-18-2021 12:06-0400 Body weight 69.22 kg Lisa Garza APRN.TRAINING AND DEVELOPMENT PROFESSIONAL Work Phone: [facility] 11-18-2021 12:06-0400 Diastolic blood pressure 88 mm[Hg] Lisa Garza APRN.TRAINING AND DEVELOPMENT PROFESSIONAL Work Phone: [facility] 11-18-2021 12:06-0400 Heart rate 80 /min Lisa Garza APRN.TRAINING AND DEVELOPMENT PROFESSIONAL Work Phone: [facility] 11-18-2021 12:06-0400 Respiratory rate 18 /min Lisa Garza APRN.TRAINING AND DEVELOPMENT PROFESSIONAL Work Phone: [facility] 11-18-2021 12:06-0400 SaO2% (BldA) [Mass fraction] 98 % Lisa Garza APRN.TRAINING AND DEVELOPMENT PROFESSIONAL Work Phone: [facility] 11-18-2021 12:06-0400 Systolic blood pressure 132 mm[Hg] Lisa Garza APRN.TRAINING AND DEVELOPMENT PROFESSIONAL Work Phone: [facility] 05-01-2021 07:31-0400 Body height 170.18 cm [facility] Work Phone: 05-01-2021 07:31-0400 Body mass index (BMI) [Ratio] 22.9 kg/m2 [facility] Work Phone: 05-01-2021 07:31-0400 Body temperature 99.5 [degF] [facility] Work Phone: 05-01-2021 07:31-0400 Body weight 66.5 kg [facility] Work Phone: 05-01-2021 07:31-0400 Diastolic blood pressure 84 mm[Hg] [facility] Work Phone: 05-01-2021 07:31-0400 Heart rate 96 /min [facility] Work Phone: 05-01-2021 07:31-0400 Respiratory rate 14 /min [facility] Work Phone: 05-01-2021 07:31-0400 SaO2% (BldA) [Mass fraction] 96 % [facility] Work Phone: 05-01-2021 07:31-0400 Systolic blood pressure 127 mm[Hg] [facility] Work Phone: Encounters Encounter Date Encounter Type Care Provider Facility Start: 11-14-2024 ambulatory Minesh Baker Facility:[facility] Start: 11-11-2024 Encounter for other preprocedural examination Minesh Baker [facility] Start: 10-27-2022 End: 10-27-2022 Emergency department patient visit Dr. Yoan Sheffield Work Phone: [facility]-Emergency Department Work Phone: Start: 10-24-2022 End: 10-24-2022 ambulatory [facility] Work Phone: Start: 10-24-2022 End: 10-24-2022 Discharged Recurring [facility]-Physical Therapy Work Phone: Start: 10-24-[address] Yoan Sheffield Work Phone: [facility]-Physical Therapy Work Phone: Start: 09-22-2022 End: 09-22-[address] Yoan Sheffield Work Phone: [facility] Work Phone: Start: 09-20-2022 End: 09-20-[address] Yoan Sheffield Work Phone: [facility]-MRI - [facility] Work Phone: Start: 09-10-2022 End: 09-10-[address] Yoan Sheffield Work Phone: [facility] Work Phone: Start: 09-09-2022 End: 09-09-2022 Emergency department patient visit Dr. Yoan Sheffield Work Phone: [facility]-Emergency Department Work Phone: Start: 11-18-2021 End: 11-18-2021 Patient encounter procedure Lisa Garza APRN.CNP Work Phone: [facility] Comment on above: Skin infection (Prim yovany Dx) Start: 05-01-2021 End: 05-01-2021 Emergency department patient visit [facility]-Emergency Department Start: 04-13-2021 End: 04-13-2021 Patient encounter procedure [facility]-Ultrasound, [facility] Start: 02-04-2021 End: 02-04-2021 Patient encounter procedure [facility]-Laboratory, Specimen Procedures Date Procedure Procedure Detail Performing Clinician Start: 10-27-2022 Plain chest X-ray Dr. Yoan Sheffield Work Phone: Start: 10-27-2022 CT of head without contrast Dr. Yoan lerner Work Phone: Start: 10-27-2022 X-ray of lumbar spine, two or three views Dr. Yoan Sheffield Work Phone: Start: 09-20-2022 MRI of joint of lower extremity Dr. Yoan Sheffield Work Phone: Start: 09-09-2022 Plain X-ray of shoulder Dr. Yoan Sheffield Work Phone: Start: 05-01-2021 Plain x-ray of pelvis and lower extremity Start: 05-01-2021 Radiography of ankle Start: 05-01-2021 Radiologic examination of knee Start: 05-01-2021 X-ray of lumbar spine, two or three views Start: 04-13-2021 US urinary tract Start: 10-07-2013 Colonoscopy Lisa Garza APRN.CNP Work Phone: History of repair of musculotendinous cuff of shoulder History of repair of right rotator cuff History of repair of musculotendinous cuff of shoulder History of repair of left rotator cuff Plan of Treatment Date Care Activity Detail Author Start: 10-08-[address] [facility] Start: 10-08-2023 COLORECTAL CANCER SCREENING COLORECTAL CANCER SCREENING [facility] Start: 10-27-2022 [facility] Start: 09-22-2022 Patient referral [facility] Work Phone: Start: 10-10-2021 Influenza vaccination INFLUENZA (#1) [facility] Start: 02-09-2021 DEPRESSION ASSESSMENT DEPRESSION ASSESSMENT [facility] Start: 07-12-2020 COVID-19 VACCINE (3 - Booster) COVID-19 VACCINE (3 - Booster) [facility] Start: 11-29-2016 DIABETES SCREEN DIABETES SCREEN [facility] Start: 06-07-2014 PROSTATE CANCER SCREENING DISCUSSION PROSTATE CANCER SCREENING DISCUSSION [facility] Start: 06-07-2009 SHINGRIX VACCINE (1 of 2) SHINGRIX VACCINE (1 of 2) [facility] Start: 06-07-2004 COLOGUARD (FIT-DNA) COLOGUARD (FIT-DNA) [facility] Start: 06-07-[address] [facility] Start: 06-07-2004 FECAL OCCULT BLOOD FECAL OCCULT BLOOD [facility] Start: 06-07-[address] [facility] Start: 06-07-1994 LIPID SCREEN LIPID SCREEN [facility] Start: 06-07-1978 Urine microalbumin profile DTAP,TDAP,TD (1 - Tdap) [facility] Start: 06-07-1977 HEPATITIS C SCREENING HEPATITIS C SCREENING [facility] Start: 06-07-1977 HIV SCREENING HIV SCREENING [facility] Start: 06-07-1965 PNEUMOCOCCAL (1 - PCV) PNEUMOCOCCAL (1 - PCV) [facility] Patient Education [facility] Work Phone: Patient referral [facility] Work Phone: Payers Date Payer Category Payer Private Health Insurance [id number] 2024 Self-pay [id number] 2021 Private Health Insurance [employer] A ETNA CHOICE POS II [id number] 2021-Present [phone] [address] [place] [address] POS [id number] 2015 Unknown [id number] Private Health Insurance [id number] Unknown [facility] PACKAGE PLAN . [id number] Unknown [id number] Social History Date Type Detail Facility Start: 05-01-2021 End: 10-27-2022 Tobacco smoking status NHIS Unknown if ever smoked [facility] Start: 1960 Sex Assigned At Male W [facility] Start: 11-18-2021 Tobacco smoking stat us NHIS Smokes tobacco daily [facility] History of tobacco use Cigarette Smoker C [facility] Start: 11-18-2021 Cigarettes smoked current (pack per day) - Reported 0.5 [facility] Start: 11-18-2021 Tobacco use and exposure Smokeless tobacco non-user [facility] Start: 11-18-2021 Alcohol intake Current drinke r of alcohol (finding) [facility] Start: 11-29-2013 Alcohol Comment 6 beers per ni ght [address] [facility] Start: 1960 Sex Assigned At Not on file C [facility] Medical Equipment Procedure Code Equipment Code Equipment Origin al Text Equipment Identifier Dates Mesh Srg Pariete x 6cm Gurpreet Rnd - [id number] Start: 12-07-2013 Mental Status Date Assessment Result Facility 10-27-2022 Cognitive function Level Of Cons ciousness Awake;Alert;Appropriate;Follow s Commands [facility] Work Phone: Discharge summary 02-05-2023 Note Date & Type Note Facility 02-05-2023 Discharge summary Note Date/Time February 05, 2023 8:35am [facility] Physical Therapy [facility] [address] [place] [address]. [address] [place] [address] / REHABILITATION SERVICES DISCHARGE SUMMARY MR#: [id number] Acct: [id number] Name: JANET JEFFERSON Rep #: [id number] : 1960 62 From: Elsi Vogel Referring Dr.: Dr. Bienvenido Jimenez, DO Status: REG RCR Insurance: [employer] SELF PAY INSURANCE Patient Information Patient Information: JANET JEFFERSON was seen in my office for initial evaluation on 09/29/22. The following Plan of Care was established for this patient: POC Established Initial Frequency: 2x /Week Initial Duration: 4 Weeks Anticipated Interventions Patient/Client Instruction: Educate patient on: Benefits of Fitness Program Therapeutic Exercise to Include: Strength training, Endurance training, Balance training, Coordination, Agility training, Body mechanics, Postural training, Flexibilty training, Gait and locomotor training, Neuromotor development, Passive ROM, Active ROM, Dynamic Lumbar Stabilization and Scapular Strength/Stabilization For the Purpose of:: To improve muscle performance and motor function Manual Therapy Techniques to Include: Soft tissue mobilization TENS: Yes Last Seen Last Seen: This patient was last seen in our office . Pertinent comments regarding their Physical therapy will appear below: Patient has not attended PT in over 8 weeks and is appropriate to be d/c at thistime. At this point I will be discontinuing this patient from physical therapy. I would be happy to see this patient again in the future if found appropriate by the physician. Thank you! Elsi Butt, DPT Balance/Gait/Functional tests Balance/Special Test Scores Quick DASH Score: [phone] <Electronically signed by Elsi Butt DPT> 02/05/23 0835 CC: Dr. Yoan Sheffield MD; Dr. Bienvenido Jimenez, DO ~ ELR Signed [facility] Work Phone: History of Present illness Narrative 11-18-2021 Lisa Garza APRN.[facility] - 11/18/2021 12:21 PM EDT Note Date & Type Note Facility 11-18-2021 History of Presen t illness Narrative Images from the original note were not included. Subjective Came in with complaints of bug bite on the left side of face by his eye. Patient says it is red and swollen and firm. Patient says he is now getting some swelling around the eye. Patient denies any eyeball pain or vision changes at this time. Patient denies any other symptoms at this time. Review of Systems Constitutional: Negative. Skin: Negative. Objective Physical Exam HENT: Head: Comments: Patient has pea-sized red raised area in the red area marked above. And mild swelling in the blue area marked above. PAST MEDICAL HISTORY Diagnosis Date NEGATIVE MEDICAL HISTORY PAST SURGICAL HISTORY Procedure Laterality Date COLONOSCOPY FLX DX W/COLLJ SPEC WHEN PFRMD 2004 Colonoscopy COLONOSCOPY FLX DX W/COLLJ SPEC WHEN PFRMD 10-07-13 OPEN REPAIR OF ROTATOR CUFF ACUTE Rotator cuff repair, left OPEN REPAIR OF ROTATOR CUFF ACUTE Rotator cuff repair, right re-do REM LESION FACE,EAR,EYE 0.6-1CM 04/23/10 Exc. randall cyst right jain RPR 1ST INGUN HRNA AGE 4 YRS/> REDUCIBLE 10-14 left SURGICAL ARTHROSCOPY SHOULDER W/ROTATOR CUFF RPR 1997 right TONSILLECTOMY PRIMARY/SECONDARY <AGE 11 Tonsillectomy ALLERGIES Patient has no known allergies. MEDICATIONS varenicline (CHANTIX) 1 mg tablet Take 1 mg by mouth twice daily. doxycycline monohydrate 100 mg tablet Take 1 tablet by mouth twice daily for 5 days. phenazopyridine (PYRIDIUM, GERIDIUM) 200 mg tablet Take 1 tablet by mouth three times daily as needed for Pain. (Patient not taking: Reported on 03/16/2019 ) No family history on file. Social History Tobacco Use Smoking status: Every Day Packs/day: 0.50 Years: 30.00 Pack years: 15.00 Types: Cigarettes Smokeless tobacco: Never Substance Use Topics Alcohol use: Yes Comment: 6 beers per night 12 oz. Drug use: No ASSESSMENT/PLAN: 1. Skin infection - ICD9: 686.9, ICD10: L08.9 Doxycycline twice a day for 5 days was prescribed patient was educated to watch for signs and symptoms of worsening. If signs and symptoms seem to be getting worse not better he was instructed to follow-up with primary care or dermatology for further treatment. Patient was okay with this care plan. Lisa Garza APRN.TRUDY documented in this encounter [facility] Evaluation note Note Date & Type Note Facility Evaluation note No assessment information availa ble [facility] Work Phone: Evaluation note Note Date & Type Note Facility Evaluation note Diagnosis Skin infection- Primary Unspecified local infection of skin and subcutaneous tissue documented in this encounter [facility] Evaluation note Note Date & Type Note Facility Evaluation note Diagnosis Onset Date Rotator cuff tear acute Rotator cuff tear acute [facility] Work Phone: Hospital Discharge instructions Note Date & Type Note Facility Hospital Discharge instructions Additional Instructions CT brain negative chest x-ray negative EKG normal vital labs slight hyponatremia sodium 133. Creatinine normal. Lumbar x-ray old stable compression fracture L1 that is minor. Continue oral fluids for hydration Tylenol or Motrin as needed. Follow-up with your doctor. [facility] Work Phone: Chief Complaint and Reason for Visit Chief Complaint RENAL CYST LEFT FALL Chief Complaint SHOULDER INJURY RIGHT SHOULDER RIGHT SHOULDER PAIN RIGHT SHOULDER ROTATOR CUFF TEAR. RX HERE SYNCOPE Reason for Visit Rotator cuff tear Rotator cuff tear Chief Complaint ROTATOR CUFF TEAR. R X HERE SYNCOPE Family History No Family History Records Found Relationship Condition Age at Onset Recorded Date/T cait mother Hypertension Unknown father Hypertension Unknown sister Hypertension Unknown brother Hypertension Unknown Advance Directives No Advanced Directives Records Found Advance Directive Response Recorded Date/ Time Living Will No May 01, 2021 7:41am Power of Oilseed Meat Presser No May 01 7:41am Advance Directive Response Recorded Date/ Time Living Will No October 27, 2022 12:41pm Power of Oil[employer] Meat [employer]er No October 12:41pm Advance Directive Response Recorded Date/ Time Living Will No October 27, 2022 11:41am Power of Oilseed Meat Presser No October 11:41am Summary Purpose Additional Source Comments Goals (unrecognized section and content) Goals may be documented in a n alternate sectionGoals may be documented in an alternate sectionGoals may be documented in an alternate section Source Comments (unrecognize d section and content) In the event this informatio n is protected by the Federal Confidentiality of Alcohol and Drug Abuse Patient Records regulations: The Federal rules restrict any use of the information to criminally investigate or prosecute any alcohol or drug abuse patient.[facility] Reason for Visit (unrecogniz ed section and content) Reason Comments Insect Bite L eyebrow insect bit e x1 week Care Teams (unrecognized sec tion and content) Collet Maker Relationship Specialty Start Date End Date Yoan Sheffield MD PCP - General Family Medicine 04/16/10 Team Status: Active Member Role Status Dates Dr. Yoan Sheffield MD Family Provider Active Dr. Yoan Sheffield MD Primary Care Provider Active Team Status: Inactive Member Role Status Dates Dr. Yoan Sheffield MD Primary Care Provider, Referring P joyce Active Dr. Bienvenido Jimenez DO Attending Provider Active Team Status: Inactive Member Role Status Dates Dr. Yoan Sheffield MD Primary Care Provider Active Dr. Jessie Issa MD Attending Provider, Emergency Provider Active Team Status: Inactive Member Role Status Dates Dr. Yoan Sheffield MD Primary Care Provider Active Dr. Bienvenido Jimenez DO Attending Provider, Referring Provider Active Team Status: Active Member Role Status Dates Dr. Yoan Sheffield MD Primary Care Provider Active Dr. Bienvenido Jimenez DO Attending Provider, Referring Provider Active Team Status: Inactive Member Role Status Dates Dr. Yoan Sheffield MD Primary Care Provider Active Dr. Jose Austin DO Emergency Provider Active Team Status: Inactive Member Role Status Dates Dr. Yoan Sheffield MD Primary Care Provider Active Dr. Jose Austin DO Attending Provider, Emergency Provide r Active (unrecognized sect ion and content) No Status Records Found INFORMATION SOURCE (unrecogn ized section and content) DATE CREATED AUTHOR 11/13/2024 [facility] FOR RECORDS PERTAINING TO PATIENTS WHO ARE OR HAVE BEEN ENROLLED IN A CHEMICAL DEPENDENCY/SUBSTANCEABUSE PROGRAM, SOME INFORMATION MAY BE OMITTED. This clinical summary was aggregated from multiple sources. Caution should be exercised in using it in the provision of clinical care. This summary normalizes information from multiple sources, and as a consequence, information in this document may materially change the coding, format and clinical context of patient data. In addition, data may be omitted in some cases. CLINICAL DECISIONS SHOULD BE BASED ON THE PRIMARY CLINICAL RECORDS. [employer] provides no warranty or guarantee of the accuracy or completeness of information in this document.
[2024-11-14] MEDS: Lactated Ringers 1,000 ML 15 ML IV (06:28)
[2024-11-14] MEDS: Epinephrine (1 mg/ml) 1 MG/ML VIAL (07:19)
--- NOTE | 2024-11-14 07:20 | PRE.ANES_ITS ---
ASA Classification* ASA Classification ASA Classification: 2 Assessment & Plan Anesthesia* Anesthesia Assessment Anesthesia Assessment: Discussed sedation and/or anesthesia options, risks, benefits, and alternatives with patient/parents/legal guardian/POA. Questions invited. The patient/parents/legal guardian/POA seems to understand and agrees to proceed with anesthesia plan. Reviewed the physical assessment, medical history, allergy history and patient home medications list prior to surgery/procedure/anesthetic and documented any changes. Performed airway and anesthesia risk assessments. Anesthesia Type Anesthesia Type: General History Source History Obtained from:: Patient and Chart Anesthesia Focused Assessment* Temperature: 98.7 F Pulse Rate: 80 Blood Pressure: 156/100 Respiratory Rate: 16 Pulse Ox: 100 Oxygen Delivery Method: Room Air Airway Assessment Mouth opens: >3 cm Mallampati Score: II Teeth Condition: Caps/Crowns (patient has a crown. It is tight.) Neck Range of motion (ROM): Full ROM Labs Anesthesia Preop lab: CBC WBC, (4.4-11.0) 6.6 K/mm3 11/08/24, 12:56 RBC, (4.6-6.2) 4.21 M/mm3 L 11/08/24, 12:56 Hgb, (13.0-16.5) 14.0 g/dL 11/08/24, 12:56 Hct, (40-54) 40.6 % 11/08/24, 12:56 Plt Count, (150-450) 350 K/mm3 11/08/24, 12:56 CHEMISTRY Potassium, (3.3-5.1) 4.2 mmol/L 11/08/24, 12:56 Sodium, (133-145) 138 mmol/L 11/08/24, 12:56 BUN, (4-19) 7 mg/dL 11/08/24, 12:56 Creatinine, (0.70-1.20) 0.74 mg/dL 11/08/24, 12:56 Glucose, (70-99) 114 mg/dL H 11/08/24, 12:56 TSH, (0.358-3.74) 2.22 uIU/mL 03/29/19, 09:18 COAG Pre-Assessment Diagnosis/Proposed Procedure Planned Operative Procedure(s): MICROLARYNGOSCOPY WITH VOCAL CORD STRIPPING Anesthesia History 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 When Was Last Pacemaker Check QUESTION #4 FULL TEXT: You/Your Family Experience fever (hyperthermia) with Anesthesia Last Oral Intake Last Oral intake: Last Oral Intake NPO since 05:00 11/14/24 06:30 Meds taken in AM with sips of Yes 11/14/24 06:30 water? Meds patient instructed to take am of surgery Any additional information?: Yes Meds taken in AM with sips of water?: Yes Meds patient instructed to take am of surgery: Pantoprazole. PONV PONV - arts and humanities council director: PONV - arts and humanities council director Female No 11/03/24 10:19 HX of Motion Sickness No 11/03/24 10:19 HX of N/V After Surgery No 11/03/24 10:19 Non-Smoker No 11/03/24 10:19 Duration of Surgery greater No 11/03/24 10:19 than 60 minutes Number of Risk Factors PONV Score Height & Weight Height & Weight: Anesthesia: Height & Weight Height 5 ft 7 in 11/14/24 06:30 Weight: 61 kg 11/14/24 06:30 Body Mass Index (BMI) 21.0 11/14/24 06:30 Respiratory Assessment Respiratory Assessment - arts and humanities council director: Respiratory Tract Infection Hx - arts and humanities council director Hx Respiratory Tract Infection No 11/03/24 10:19 STOP Sleep Apnea STOP Sleep Apnea - arts and humanities council director: STOP Sleep Apnea - arts and humanities council director Hx Hypertension No 11/03/24 10:19 Hx Sleep Apnea No 11/03/24 10:19 CPAP No 05/03/21 14:48 BIPAP No 05/03/21 14:48 Do you snore loudly (louder Yes 11/03/24 10:19 than talking or can be heard Do you often feel tired/ No 11/03/24 10:19 fatigued/ sleepy during daytime? Has anyone observed you stop Yes 11/03/24 10:19 breathing during sleep? STOP Results Positive 11/03/24 10:19 QUESTION #5 FULL TEXT : Do you snore loudly (louder than talking or can be heard through closed doors)? 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 Specify any problems Hx of Preganancy in last 3 N/A 11/03/24 10:19 Months Nurse Filling Out Transfusion DSCHRIBER 11/03/24 10:19 & Questions: Date: 11/03/24 11/03/24 10:19 Time: 10:21 11/03/24 10:19 Patient unable to answer at this time (ie. confused, unrespo /Reproduction History /Reproductive History - arts and humanities council director: /Reproductive Hx- arts and humanities council director Hx Now No 11/03/24 10:19 Gestational Age (in weeks): EDC: Hx Hx Para Hx Section SAB No 11/03/24 10:19 Active Medications Active Medications: Current Medications Generic Name Dose Route Start Last Admin Trade Name Freq PRN Reason Stop Dose Admin Lactated Ringer's 1,000 mls @ 15 mls/hr 11/14/24 06:15 11/14/24 06:28 IV 15 mls/hr .Q48H LO Administration PFSH Medical History Wears glasses Alcohol use History of steroid therapy Anemia Back pain Blackout Gastric reflux Smoker Arthritis Osteoarthritis of left hip DDD (degenerative disc disease), lumbar Home Medications ?Medication ?Instructions ?Recorded ?Last Taken ?Type fexofenadine 60 mg-pseudoephedrine 1 tab PO DAILY 04/03 Unknown History ER 120 mg tablet,ext.release,12 hr (Cady-D 12 Hour) cyclobenzaprine 10 mg tablet 10 mg PO TID PRN Muscle S pasm #20 10/27/22 Unknown Rx TABLETS cyanocobalamin (vitamin B-12) 100 mcg IM QWEEK 5 Unknown History 1,000 mcg/mL injection solution pantoprazole 40 mg tablet,delayed 40 mg PO DAILY 11/0311/14/24 05:00 History release Allergy/AdvReac Type Severity Reaction Status Date / Time pollen extracts AdvReac Runny Verified 11/14/24 06:27 nose, itchy eyes Family History Mother Hypertension Father Hypertension Sister Hypertension Brother Hypertension Surgical History Hx of colonoscopy Hx of tonsillectomy History of repair of right rotator cuff History of repair of left rotator cuff Hx of inguinal hernia repair Social History Smoking Status: Current every day smoker tobacco type: cigarettes alcohol intake: current alcohol intake frequency: 3 or more drinks per day Alcohol type: beer substance use type: does not use caffeine: Yes what type of physical activity do you participate in: none frequency: does not exercise Review of Systems (Anesthesia) ROS Narrative System reviewed and no additional complaints, except as documented.
--- NOTE | 2024-11-14 07:30 | VOCOB_PTH ---
PATIENT: JANET JEFFERSON LOC: [facility] [place] U#:[id number] AGE/SX: 64/M ROOM: RE11/14/[address]: Dr. Minesh Baker MD : 1960 BED: DIS: 11/14/2024 SPEC #: [id number] RECD: 11/14/24 11:38 STATUS: CASEY REGregorio #: [id number] DEIDRA: 11/14/24 07:[address]: Minesh Baker DEPT: SURGICAL PATHOLOGY RECD BY: Dante Mcgowan ENTERED: 11/14/24 13:10 SP TYPE: VOCAL CORD OTHR DR: Dr. Yoan Sheffield MD Tissues: A - Vocal cord, NOS Procedures: Surgery Specimen Level IV HEADER OPERATION: Microlaryngoscopy with vocal cord stripping PRE-OP DIAGNOSIS: Polyp of vocal cord and larynx, GERD, dysphonia TISSUE SUBMITTED: A- Right true vocal cord neopalsm MICROSCOPIC DIAGNOSIS A. Right true vocal cord, neoplasm, biopsy: * Polypoid squamous mucosa with edematous stroma and telangiectasia, benign, consistent with laryngeal (hyman's) nodule. MICROSCOPIC DESCRIPTION Slides are reviewed. GROSS DESCRIPTION A. Received in formalin labeled with the patient's name and date of . Designated as right true vocal cord neoplasm is a 0.4 x 0.4 x 0.3 cm hill-white rubbery tissue fragment. Entirely submitted in 1 cassette. MO 11/14/2024 CPT:83178
--- NOTE | 2024-11-14 07:37 | PCM.DC.SUM ---
Providers Primary Care Physician: Dr. Yoan Sheffield MD Reason For Visit: Microlaryngoscopy with vocal cord stripping Medications at Discharge Home Medications fexofenadine 60 mg-pseudoephedrine ER 120 mg tablet,ext.release,12 hr (Cady-D 12 Hour) 1 tab PO DAILY 09/10/22 cyclobenzaprine 10 mg tablet 10 mg PO TID PRN Muscle Spasm #20 TABLETS 10/27/22 cyanocobalamin (vitamin B-12) 1,000 mcg/mL injection solution 100 mcg IM QWEEK 11/03/24 pantoprazole 40 mg tablet,delayed release 40 mg PO DAILY 11/03/24 Weight / BMI Weight Weight: 61 kg Body Mass Index (BMI) 21.0 ABG / Lab / Microbiology Data 11/08/24 12:56 11/08/24 12:56 D/C Instructions Discharge Activity: Return to Normal Activity Additional Activity Instructions: Absolute voice rest x 3 days. Then arms length talking for a week thereafter DC O2, CPAP, BIPAP Needs Home O2 Discharge instructions: No Please Follow Up With: Minesh Baker MD When: 2 weeks Meaningful Use Info Meaningful Use Meaningful Use Diagnoses (Choose all that apply): None applicable Discharge Plan Admission Attending Provider: Minesh Baker Primary Care Provider: Yoan Sheffield Instructions Print Language: [place] Discharge Orders/Prescriptions Prescriptions: No Action fexofenadine-pseudoephedrine [Cady-D 12 Hour] 60-120 mg tablet extended release 12 hr 1 tab PO DAILY cyclobenzaprine [cyclobenzaprine] 10 mg tablet 10 mg PO TID PRN (Reason: Muscle Spasm) Qty: 20 0RF pantoprazole 40 mg tablet,delayed release (DR/EC) 40 mg PO DAILY cyanocobalamin (vitamin B-12) 1,000 mcg/mL solution 100 mcg IM QWEEK Patient Comments: FOR 4 WEEKS THEN MONTHLY Referrals / Follow Up: Yoan Sheffield MD [Primary Care Provider, Family Practice] Disposition Disposition (needs filled in before D/C Order can be placed): Home, Self Care
[2024-11-14] MEDS: Lidocaine 1% (5 ml sdv) 5 ML Vial 8 ML IV (07:38)
[2024-11-14] MEDS: fentaNYL 100 MCG/2 ML Ampul IV (07:42)
--- NOTE | 2024-11-14 08:07 | PCM.OPRPT ---
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 He was placed in the supine position on the operating room table. He was given sufficient general endotracheal anesthesia. The table was turned 90 degrees in a clockwise fashion. The patient was draped sterilely. A gum guard was placed on the upper dentition. A Dedo laryngoscope inserted the patient's mouth and then passed into the oropharynx. The larynx was then exposed and he was placed in suspension using the Lewy suspension on the Freeland stand. The operating microscope was then used. The right true vocal cord mass was grasped with cup forceps and excised from the surrounding mucosa with scissors. This was sent for permanent section. Hemostasis was achieved with topical adrenaline pledgets. Once hemostasis was achieved all instrumentation was removed. The patient was then turned back to the regular anesthesia position and awoken. He was brought to the recovery room in stable condition. Blood loss minimal, replacement none. Sponge needle and instrument count were correct at the end of the procedure. Surgical Findings: right vocal cord neoplasm Complications Complications: No
--- NOTE | 2024-11-14 08:24 | PCM.POST.ANE ---
Anesthesia: Postop Eval I Current Vital Signs Temperature: 97.6 F Pulse Rate: 78 Blood Pressure: 152/88 Respiratory Rate: 16 Pulse Ox: 100 Oxygen Delivery Method: Room Air Assessment Airway patent: Yes Spontaneous unlabored respirations: Yes Mental status: Awake nausea: No Vomiting: No Anesthesia Complication: No Fluid Hydration Crystalloid volume administer (ml): 800 Total IV fluid infused: 800 Progress Note Anesthesia document: Postop Eval 1 completed: Yes
--- NOTE | 2024-11-14 12:34 | POSTOPAN2_ITS ---
Anesthesia Postop Eval I Sum Postop Eval Completion status Anesthesia document: Postop Eval 1 completed: Yes Anesthesia Postop Eval I Summary Anesthesia Postop Eval I Summary: Anesthesia Postop Eval I: Assessment Summary Airway patent Yes 11/14/24 08:25 PERCUSSION TUNER.SJAN Spontaneous unlabored Yes 11/14/24 08:25 PERCUSSION TUNER.CELIA respirations Mental status Awake 11/14/24 08:25 PERCUSSION TUNER.SJAN nausea No 11/14/24 08:25 PERCUSSION TUNER.SJAN Vomiting No 11/14/24 08:25 PERCUSSION TUNER.SJVIKTORIA Anesthesia Postop Eval I: Fluid Summary Crystalloid volume administer 800 11/14/24 08:25 PERCUSSION TUNER.SJAN (ml) Colloids volume administered ( ml) Blood Product volume administered (ml) Total IV fluid infused 800 11/14/24 08:25 PERCUSSION TUNER.CELIA Anesthesia Postop Eval I: Summary Notes Anesthesia Complication No 11/14/24 08:25 PERCUSSION TUNER.CELIA Anesthesia Complication Comment: Post-operative progress note Anesthesia: Postop Eval II Evaluation Mental status: Awake and Calm Pain Level: 1 nausea: No Vomiting: No Complications Anesthesia Complication: No
--- NOTE | 2024-11-14 12:34 | PCM.POSTANE2 ---
Anesthesia Postop Eval I Sum Postop Eval Completion status Anesthesia document: Postop Eval 1 completed: Yes Anesthesia Postop Eval I Summary Anesthesia Postop Eval I Summary: Anesthesia Postop Eval I: Assessment Summary Airway patent Yes 11/14/24 08:25 HUB CUTTER APPRENTICE.SJAN Spontaneous unlabored Yes 11/14/24 08:25 HUB CUTTER APPRENTICE.CELIA respirations Mental status Awake 11/14/24 08:25 HUB CUTTER APPRENTICE.SJAN nausea No 11/14/24 08:25 HUB CUTTER APPRENTICE.SJAN Vomiting No 11/14/24 08:25 HUB CUTTER APPRENTICE.SJVIKTORIA Anesthesia Postop Eval I: Fluid Summary Crystalloid volume administer 800 11/14/24 08:25 HUB CUTTER APPRENTICE.SJAN (ml) Colloids volume administered ( ml) Blood Product volume administered (ml) Total IV fluid infused 800 11/14/24 08:25 HUB CUTTER APPRENTICE.CELIA Anesthesia Postop Eval I: Summary Notes Anesthesia Complication No 11/14/24 08:25 HUB CUTTER APPRENTICE.CELIA Anesthesia Complication Comment: Post-operative progress note Anesthesia: Postop Eval II Evaluation Mental status: Awake and Calm Pain Level: 1 nausea: No Vomiting: No Complications Anesthesia Complication: No
== END 2024-11-14 09:36 | disposition home or self-care (01) ==
LOC: SDC 06:02 → AC 06:03
PROVIDERS: PCP Family Medicine; Referring Provider Otolaryngology; Visit Provider Otolaryngology
PROC: 0CJS8ZZ Inspection of Larynx, Via Natural or Artificial Opening Endoscopic (ICD-10-PCS; CPT 31575; principal; 2024-11-14 07:25)
DX: J38.1 Polyp of vocal cord and larynx (principal); Z79.899 Other long term (current) drug therapy; K21.9 Gastro-esophageal reflux disease without esophagitis; F17.210 Nicotine dependence, cigarettes, uncomplicated; I78.1 Nevus, non-neoplastic
CPT/HCPCS: 31541; 00320; 36415; 80048; 85027; 88305; 93005; J2405